=== PATIENT | male | born 1955 | race Caucasian/White ===

== ENCOUNTER 2024-06-03 18:15 | Inpatient (IN) | payer OTHER, SELFPAY ==
--- NOTE | ~2024-06-03 | US_ITS ---
CLINICAL HISTORY: pain and swelling Venous duplex ultrasound left lower extremity Comparison: None Findings: The visualized deep veins are fully compressible with normal Doppler color flow and spectral tracings. No popliteal cyst. IMPRESSION: 1. Negative for left lower extremity deep vein thrombosis. This document has been electronically signed by: Barry Eric MD on 06/03/2024 19:56:12
[2024-06-03 18:35] VITALS: BP 110/67; BP 156/95; PULSE 106; RESP 20; TEMP 36.6; O2SAT 95; O2SAT 96; BMI 66.6
--- NOTE | 2024-06-03 18:46 | ED_ITS ---
HPI - General Adult General Chief complaint: General Medical Stated complaint: cellulitis on left leg Time Seen by Provider: 06/03/24 18:22 Source: patient, RN notes reviewed and old records reviewed Mode of arrival: EMS Limitations: no limitations History of Present Illness ED Provider: Gino HERBERT narrative: 69-year-old male with past medical history significant for morbid obesity, chronic respiratory failure with hypoxia on nocturnal oxygen dependence, hyperlipidemia, diabetes, sleep apnea, depression, chronic kidney disease, congestive heart failure, atrial fibrillation on Eliquis presents for evaluation of left leg swelling and redness. Patient arrives via EMS from [facility] and rehab He was discharged there after being treated for left leg cellulitis at [facility]. Patient reports his symptoms did improve but returned last week. He was started on Keflex yesterday but was sent to the ER today due to worsening symptoms He reports pain from his left leg all way up to his left hip He is unsure if he has had any fevers or chills but has not had any documented fevers No other complaints or concerns at this time Related Data Allergies Allergy/AdvReac Type Severity Reaction Status Date / Time No Known Allergies Allergy Verified 06/03/24 18:38 Review of Systems 2 Constitutional: Constitutional: Denies body ache(s), Denies chills, Denies fever(s) and Denies headache(s) Eyes: Eyes: Denies blurry vision ENT: Denies vertigo and Denies headache(s) Cardiovascular: Cardiovascular: Denies dyspnea Respiratory: Respiratory: Denies cough and Denies dyspnea Gastrointestinal: Gastrointestinal: Denies abdominal pain, Denies nausea and Denies vomiting Musculoskeletal: Musculoskeletal: Reports radiating pain into limb Integumentary/Breasts: Skin/Breast: Reports erythema and Denies wounds Neurologic: Denies vertigo and Denies headache(s) Psychiatric: Psychiatric: Denies anxiety PMFSH Social History Social History Advance Directives: Yes Advance Directives Information Provided: No Advance Directives on File: No Do you have a plan to hurt others: No Plan Physical Exam ED Vital Signs: Vital Signs - 24 hr 06/03/24 18:35 Temperature 97.9 F Pulse Rate 106 H Respiratory Rate 20 Blood Pressure 110/67 Pulse Oximetry 95 Oxygen Delivery Method Room Air BMI result Body Mass Index 66.6 Const General: healthy appearing, comfortable, no acute distress, alert and awake Nutritional Appearance: well nourished Orientation/consciousness: patient oriented x3 HENMT Head: Yes normocephalic and Yes atraumatic Eyes Eyelids: Yes eyelids normal Conjunctivae: conjunctivae normal Sclerae: sclerae normal Corneas: corneas normal Pupils: Equal, round and reactive pupils present EOM: EOMs intact bilaterally Neck Neck: Yes full ROM Resp Effort & Inspection: normal respiratory effort, able to speak in complete sentences and not labored GI Inspection: No distended Palpation (GI): Soft to palpation, not firm, nontender, no guarding and not rigid Skin General skin exam: elasticity normal Neuro General: patient oriented x3 Cranial nerves: Yes Equal, round and reactive pupils present and Yes Bilaterally intact EOM present Cognition (Neuro): normal cognition Extrem Other: Patient has erythema extending from the left lower extremity all the way up towards the left hip. This area has increased swollen. There are no deep wounds or excoriations. Medical Decision Making Medical Decision Making MDM Narrative: 69-year-old male past medical history as documented above presents for evaluation of left leg pain and swelling. He was recently treated for left leg cellulitis and is concerned that this is recurring. Plan for labs including blood cultures, he is anticoagulated so less likely DVT we will get an ultrasound of the left lower extremity. The patient is tachycardic to 106 beats minute but is afebrile and normotensive. Differential Diagnosis Differential Diagnoses: The differential diagnosis associated with the presentation includes Cellulitis Abscess DVT Dermatitis Lymphadenopathy Admission/Observation Consideration of admission/observation: Escalation of care including admission/observation considered Lab Data MDM Lab Attestation statement: I reviewed the patient's lab results. No leukocytosis. The patient does have a mild anemia which is likely anemia of chronic disease. He has a thrombocytopenia of 141 K. No significant electrolyte abnormalities. Patient's BUN is elevated 28 with a normal creatinine of 0.84. 06/03/24 18:58 06/03/24 19:31 Labs: Lab Results 06/03/24 06/03/24 Range/Units 18:58 19:31 WBC 8.1 (4.8-10.8) X10*3/uL RBC 4.57 L (4.60-5.80) X10*6/uL Hgb 13.0 L (14.0-18.0) g/dl Hct 39.5 L (42.0-52.0) % MCV 86.4 (80.0-98.0) fL MCH 28.4 (27.0-33.0) pg MCHC 32.9 (31.0-36.0) g/dl RDW 14.7 (11.0-16.0) % Plt Count 141 L (160-400) X10*3/uL MPV 10.2 (9.4-12.4) fL Immature Gran % (Auto) 0.7 H (0.0-0.4) % Neut % (Auto) 84.6 H (45-73) % Lymph % (Auto) 8.9 L (20-40) % [place] % (Auto) 4.7 (2-11) % Eos % (Auto) 1.0 (0-4) % Baso % (Auto) 0.1 (0-2) % Lymph # (Auto) 0.7 L (1.2-4.9) X10*3/uL [place] # (Auto) 0.4 (0.1-1.2) X10*3/uL Eos # (Auto) 0.1 (0.0-0.4) X10*3/uL Baso # (Auto) 0.0 (0.0-0.2) X10*3/uL Abs Immat Gran (auto) 0.06 H (0.00-0.03) X10*3/uL Absolute Neuts (auto) 6.9 (2.0-8.3) x10*3/uL Absolute Nucleated RBC 0.000 (0.0-0.012) X10*3/uL Nucleated RBC % (auto) 0.0 (0.0-0.2) /100WBC PT 15.9 H (10.9-12.4) SEC INR 1.4 H (0.9-1.1) APTT 34.0 (26.0-36.8) SEC Sodium 140 (135-145) mmol/L Potassium 4.0 (3.3-5.1) mmol/L Chloride 103 (96-108) mmol/L Carbon Dioxide 31 H (22-29) mmol/L Anion Gap 10 L (12-20) BUN 28 H (9-16) mg/dL Creatinine 0.84 (0.5-1.4) mg/dL Estim Creat Clear Calc 137.0 Estimated GFR > 60 Random Glucose 105 (60-115) mg/dL Lactic Acid 1.1 (0.5-2.0) mmol/L Calcium 8.3 L (8.4-10.2) mg/dL Total Bilirubin 0.3 (0.0-1.0) mg/dL AST 50 H (5-37) U/L ALT 64 H (0-40) U/L Alkaline Phosphatase 61 (39-117) U/L Total Protein 6.2 L (6.5-8.0) g/dL Albumin 2.8 L (3.5-5.0) g/dL Lipase 13 (8-78) U/L Radiology Impression Discussion of test interpretation with radiology: I have reviewed the radiologist's reading. (Left lower extremity ultrasound negative for DVT) Discharge Plan Discharge Clinical Impression: Cellulitis of left leg Patient Disposition: Still a Patient Print Language: Yi
[2024-06-03 19:03] LABS: MANUAL DIFF FLAG NO
[2024-06-03 19:05] LABS: Basophils Percent Auto 0.1 % (0-2); Eosinophils Absolute Auto 0.1 X10*3/uL (0.0-0.4); Hematocrit 39.5 % (42.0-52.0); Imm Gran Abs Auto 0.06 X10*3/uL (0.00-0.03); Imm Gran Pct Auto 0.7 % (0.0-0.4); Lymphocytes Absolute Auto 0.7 X10*3/uL (1.2-4.9); Lymphocytes Percent Auto 8.9 % (20-40); Mean Corpuscular HGB Conc 32.9 g/dl (31.0-36.0); Mean Corpuscular Hemoglobin 28.4 pg (27.0-33.0); Mean Corpuscular Volume 86.4 fL (80.0-98.0); Mean Platelet Volume 10.2 fL (9.4-12.4); Monocytes Absolute Auto 0.4 X10*3/uL (0.1-1.2); Monocytes Percent Auto 4.7 % (2-11); Neutrophils Absolute Auto 6.9 x10*3/uL (2.0-8.3); Neutrophils Percent Auto 84.6 % (45-73); Platelet Count 141 X10*3/uL (160-400); Red Blood Count 4.57 X10*6/uL (4.60-5.80); Red Cell Distribution Width 14.7 % (11.0-16.0); White Blood Count 8.1 X10*3/uL (4.8-10.8)
[2024-06-03 19:20] LABS: Lactic Acid 1.1 mmol/L (0.5-2.0)
[2024-06-03 19:49] LABS: Alanine Aminotransferase 64 U/L (0-40); Albumin Level 2.8 g/dL (3.5-5.0); Alkaline Phosphatase 61 U/L (39-117); Anion Gap 10 (12-20); Aspartate Amino Transferase 50 U/L (5-37); Bilirubin Total 0.3 mg/dL (0.0-1.0); Blood Urea Nitrogen 28 mg/dL (9-16); Calcium 8.3 mg/dL (8.4-10.2); Carbon Dioxide 31 mmol/L (22-29); Chloride 103 mmol/L (96-108); Estimated Glomerular Filt Rate > 60; Glucose Random 105 mg/dL (60-115); Lipase 13 U/L (8-78); Sodium 140 mmol/L (135-145); Total Protein 6.2 g/dL (6.5-8.0)
[2024-06-03 19:50] LABS: INTERNATIONAL NORM RATIO 1.4 (0.9-1.1); Prothrombin Time 15.9 SEC (10.9-12.4)
[2024-06-03 20:00] VITALS: BP 107/76; PULSE 90; RESP 18; O2SAT 99
[2024-06-03] MEDS: cefTRIAXone sodium 2 GM VIAL IVPUSH (20:22)
[2024-06-03] MEDS: vancomycin/NS 2,000 MG/500 ML PLAST..BAG 250 MG IV (20:26)
--- NOTE | 2024-06-03 20:45 | PM.IMHP ---
History of Present Illness Date of Service: 06/03/24 Attending physician on admission: Davida Ugarte Chief Complaint: LLE cellulitis Patient is a annual male with a past medical history significant for morbid obesity, AFib on Eliquis, obesity hypoventilation syndrome, Charcot's foot left lower extremity secondary to CKD, TRACY on CPAP, ?T2DM, with recent admission at [facility] for left lower extremity cellulitis, discharged to [place] [facility] 1 week ago. The patient reports that his cellulitis improved when he was discharged and he went to rehab on p.o. antibiotics with complete resolution of the cellulitis. He returns today with worsening cellulitis for the past 2 days. Previously it was from the knee down now it is all the way up to the hip. Very erythematous without any purulent drainage, or warmth. Does report some fever and chills starting 2 days ago as well as an intermittent headache. Denies nausea, vomiting, abdominal pain, diarrhea, urinary symptoms including frequency, urgency or hematuria. He is bed-bound and does have urinary incontinence. He reports multiple skin rashes that he is being treated for with creams and powders. Review of Systems Constitutional: Constitutional: Denies body ache(s), Reports chills, Denies fatigue, Reports fever(s) and Reports headache(s) Eyes: Eyes: Denies change in vision ENT: Reports headache(s), Denies nasal congestion, Denies nasal discharge and Denies sore throat Cardiovascular: Cardiovascular: Denies chest pain, Denies rapid heart rate, Denies lightheadedness and Denies dyspnea Respiratory: Respiratory: Denies chest congestion, Denies cough, Denies dyspnea and Denies wheezing Gastrointestinal: Gastrointestinal: Denies diarrhea, Denies nausea and Denies vomiting Genitourinary: Genitourinary: Denies hematuria, Denies dysuria, Denies urinary frequency and Reports urinary incontinence (Chronic) Musculoskeletal: Musculoskeletal: Denies myalgias Integumentary/Breasts: Skin/Breast: Reports as per HPI Neurologic: Denies confusion and Reports headache(s) Psychiatric: Psychiatric: Denies confusion Endocrine: Endocrine: Denies fatigue Hematologic/Lymphatic: Hematologic/Lymphatic: Denies easy bleeding and Denies easy bruising Allergic/Immunologic: Allergic/Immunologic: Denies wheezing [facility] Medical History (Updated 06/03/24 @ 20:55 by Arabella Cota PA-C) TRACY on CPAP T2DM (type 2 diabetes mellitus) CKD (chronic kidney disease) Charcot joint of foot Obesity hypoventilation syndrome A-fib Morbid obesity with BMI of 60.0-69.9, adult Functional capacity: bed bound Social History Advance Directives: Yes Advance Directives Information Provided: No Advance Directives on File: No Do you have a plan to hurt others: No Plan Narrative: No smoking, alcohol or drug use Meds Allergies Allergy/AdvReac Type Severity Reaction Status Date / Time No Known Allergies Allergy Verified 06/03/24 18:38 Active Medications: Current Medications Vancomycin HCl (Vancomycin/Ns) 2,000 mg in 500 mls @ 250 mls/hr IV ONCE ONE Stop: 06/03/24 22:11 Last Admin: 06/03/24 20:26 Dose: 250 mls/hr Physical Exam Vital Signs and Narrative: Vital Signs: Last Vital Signs Temp 97.9 F 06/03/24 18:35 Pulse 90 06/03/24 20:00 Resp 18 06/03/24 20:00 BP 107/76 06/03/24 20:00 Pulse Ox 99 06/03/24 20:00 O2 Del Method Room Air 06/03/24 20:00 BMI result Body Mass Index 66.6 General: AOx3, no acute distress Resp: CTA bilaterally, difficult to auscultate due to body habitus CVS: S1, S2, RRR, difficult to auscultate due to body habitus GI: +BS, NT, no distention Skin: Warm, dry Neuro: Cranial nerves II-XII grossly intact bilaterally. Motor grossly intact bilaterally Extremities: Bilateral edema lower extremities. Venous stasis bilaterally. Extensive erythema left lower extremity from foot to hip. No sign of abscess or active drainage although difficult to assess due to body habitus. No significant warmth. Mild fluid drainage on right ankle, source unable to be identified. Intertriginous rash under pannus. Psych: Appropriate affect Const: General: No confusion Orientation/consciousness: No confusion Neuro: General: No confusion Results Labs 06/03/24 18:58 06/03/24 19:31 Labs: Laboratory Results - last 24 hr 06/03/24 06/03/24 18:58 19:31 MCV 86.4 MCH 28.4 MCHC 32.9 RDW 14.7 Plt Count 141 L MPV 10.2 Immature Gran % (Auto) 0.7 H Neut % (Auto) 84.6 H Lymph % (Auto) 8.9 L [place] % (Auto) 4.7 Eos % (Auto) 1.0 Baso % (Auto) 0.1 Lymph # (Auto) 0.7 L [place] # (Auto) 0.4 Eos # (Auto) 0.1 Baso # (Auto) 0.0 Abs Immat Gran (auto) 0.06 H Absolute Neuts (auto) 6.9 Absolute Nucleated RBC 0.000 Nucleated RBC % (auto) 0.0 PT 15.9 H INR 1.4 H APTT 34.0 Anion Gap 10 L Estim Creat Clear Calc 137.0 Estimated GFR > 60 Random Glucose 105 Lactic Acid 1.1 Calcium 8.3 L Total Bilirubin 0.3 AST 50 H ALT 64 H Alkaline Phosphatase 61 Total Protein 6.2 L Albumin 2.8 L Lipase 13 Assessment and Plan (1) Cellulitis of left leg: Status: Acute (2) Intertrigo: Status: Acute (3) Morbid obesity with BMI of 60.0-69.9, adult: Status: Acute Plan Patient is a annual male with a past medical history significant for morbid obesity, AFib on Eliquis, obesity hypoventilation syndrome, Charcot's foot left lower extremity secondary to CKD, TRACY on CPAP, ?T2DM, with recent admission at [facility] for left lower extremity cellulitis, discharged to [place] [facility] 1 week ago. Pt reports his BP was very low at [facility], likely septic, however, no sepsis at this time. Failed outpt treatment with keflex x2 rounds. cellulitis LLE, failed outpt treatment - WBC 8.1, vitals stable, lactic normal, blood cultures x2 pending, no sepsis - US LLE negative for DVT - started on vancomycin and ceftriaxone in ED, continue vanco and switch from ceftriaxone to zosyn - monitor CBC and BMP intertrigo - clotrimazole cream BID under pannus and in skin folds a fib - continue eliquis and rate control meds Obesity hypoventilation syndrome/TRACY - CPAP at night ?T2DM -- pt reports no formal dx but med list has sliding scale - check A1c - diabetic diet - SSI Morbid obesity - BMI 66.6 - weight loss encouraged med rec not complete upon admission Full code VTE prophylaxis: eliquis Patient with left lower extremity cellulitis with failed outpatient treatment and recent admission for sepsis at [facility], requiring admission for at least 2 midnights stay for IV antibiotics and monitoring. Quality Stroke Does the patient have a stroke diagnosis?: No VTE Prior VTE?: No VTE Risk Level:: Medical - moderate - high VTE Device Contraindication: Treatment Not Indicated VTE Drug Contraindication: N/A - Med Ordered
--- NOTE | 2024-06-03 22:29 | PC.NURSE ---
late admin for zosyn iv d/t vanco still running
[2024-06-03] MEDS: Apixaban 5 MG TABLET PO (22:34)
[2024-06-03] MEDS: Piperacillin Sodium/Tazobactam 3.375 GM in 0.9 % Sodium Chloride 50 ML IV (22:34)
--- NOTE | 2024-06-03 23:29 | PC.NURSE ---
pt moved into hospital bed, resting comfortably in no apparent distress, offers no current complaints. call walsh within reach , plan of care ongoing
[2024-06-04] VITALS (9 sets, daily range): BP systolic 101–147; BP diastolic 61–76; PULSE 85–107; RESP 16–20; TEMP 36.1–36.7; O2SAT 94–97
[2024-06-04] MEDS: Piperacillin Sodium/Tazobactam 3.375 GM in 0.9 % Sodium Chloride 50 ML IV ×4 (04:01→21:41)
[2024-06-04 05:15] LABS: Estimated Average Glucose 105 mg/dL; Hemoglobin A1C 113.7682 umol/L; Hemoglobin A1c % 5.3 % (<6.0); Total Hemoglobin (HGBA1C) 3281.5384 umol/L
[2024-06-04 06:38] LABS: MANUAL DIFF FLAG NO
[2024-06-04 06:57] LABS: Basophils Percent Auto 0.3 % (0-2); Eosinophils Absolute Auto 0.1 X10*3/uL (0.0-0.4); Eosinophils Percent Auto 1.6 % (0-4); Hemoglobin 12.7 g/dl (14.0-18.0); Imm Gran Abs Auto 0.05 X10*3/uL (0.00-0.03); Imm Gran Pct Auto 0.7 % (0.0-0.4); Lymphocytes Absolute Auto 0.9 X10*3/uL (1.2-4.9); Lymphocytes Percent Auto 12.3 % (20-40); Mean Corpuscular HGB Conc 31.8 g/dl (31.0-36.0); Mean Corpuscular Hemoglobin 27.9 pg (27.0-33.0); Mean Corpuscular Volume 87.7 fL (80.0-98.0); Mean Platelet Volume 9.9 fL (9.4-12.4); Monocytes Absolute Auto 0.4 X10*3/uL (0.1-1.2); Monocytes Percent Auto 5.1 % (2-11); Neutrophils Absolute Auto 5.5 x10*3/uL (2.0-8.3); Platelet Count 124 X10*3/uL (160-400); Red Blood Count 4.56 X10*6/uL (4.60-5.80); Red Cell Distribution Width 14.6 % (11.0-16.0); White Blood Count 6.9 X10*3/uL (4.8-10.8)
[2024-06-04 07:17] LABS: Anion Gap 12 (12-20); Blood Urea Nitrogen 26 mg/dL (9-16); Calcium 8.3 mg/dL (8.4-10.2); Carbon Dioxide 27 mmol/L (22-29); Chloride 106 mmol/L (96-108); Creatinine Clr Calc Pharmacy 162.1; Estimated Glomerular Filt Rate > 60; Glucose Random 86 mg/dL (60-115); Potassium 3.7 mmol/L (3.3-5.1); Sodium 141 mmol/L (135-145)
[2024-06-04 07:48] LABS: Glucose, Whole Blood 76 mg/dL (60-115)
--- NOTE | 2024-06-04 08:28 | PHA.MEDREC ---
Pharmacy Consult ? Medication Reconciliation Pharmacy has completed the medication reconciliation, utilized transfer/discharge report/list from [facility].
--- NOTE | 2024-06-04 08:42 | PHA.PROG ---
Admission Date/Time: June 03, 2024 21:07 Indication: SKIN Weight in k.777 kg Adjusted body weight in Kg: [place] body weight in Kg: Obesity Dosing Indication % IBW: Serum Creatinine - Last 168 Hours 06/03/24 06/04/24 19:31 05:19 Creatinine 0.84 0.71 Estimated CrCl and GFR - Last 168 Hours 06/03/24 06/04/24 19:31 05:19 Estim Creat Clear Calc 137.0 162.1 Estimated GFR > 60 > 60 Vancomycin Loading Dose: 2000 MG Current Vancomycin Dosing Regimen: 1500 MG Q12H Vancomycin Monitoring using AUC goal of 400 - 600 range with trough as surrogate marker: PEE=576 TROUGH=14.7 Date and Time for next Vancomycin Level to be drawn: 06/05/24 @0700 Pharmacist Comments on Vancomycin Plan: Vancomycin dosing will take advantage of [employer] as a clinical decision support tool that uses Bayesian modeling to calculate individual patient's pharmacokinetic parameters and forecast the patient's drug concentration time course with the target goal AUC 24 range of 400 - 600 mg/L/hr.
[2024-06-04] MEDS: Albuterol/Iprat 2.5/0.5MG 3 ML AMPUL.NEB INHALE ×2 (08:49→21:07)
[2024-06-04] MEDS: 0.9 % Sodium Chloride Flush 3 ML SYRINGE IVFLUSH ×2 (09:23→20:23)
[2024-06-04] MEDS: Atorvastatin Calcium 20 MG TABLET PO (09:24)
[2024-06-04] MEDS: Ferrous Sulfate 324 MG TABLET.DR PO (09:24)
[2024-06-04] MEDS: Cholecalciferol (Vitamin D3) 25 MCG TABLET 125 MCG PO (09:24)
[2024-06-04] MEDS: Calcium Carbonate 750 MG TAB.CHEW PO (09:24)
[2024-06-04] MEDS: Magnesium Oxide 400 MG TABLET PO (09:25)
[2024-06-04] MEDS: Dicyclomine HCl 10 MG CAPSULE PO ×2 (09:25→20:23)
[2024-06-04] MEDS: Escitalopram Oxalate 20 MG TABLET PO (09:25)
[2024-06-04] MEDS: Gabapentin 100 MG CAPSULE PO ×2 (09:25→20:23)
[2024-06-04] MEDS: Furosemide 40 MG TABLET PO (09:38)
[2024-06-04] MEDS: Metoprolol Succinate ER 50 MG TAB.ER.24H PO (09:38)
[2024-06-04] MEDS: traMADoL HCL 50 MG TABLET PO ×2 (09:40→21:40)
[2024-06-04 11:11] LABS: Glucose, Whole Blood 88 mg/dL (60-115)
[2024-06-04] MEDS: Apixaban 5 MG TABLET PO ×2 (11:37→20:23)
--- NOTE | 2024-06-04 12:00 | MHC.CM.PN ---
Addendum entered by Shayy Jeffers 06/05/24 10:28: ACCORDING TO [facility], [facility] DOES NOT HOLD BEDS. 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
[2024-06-04 16:15] LABS: Glucose, Whole Blood 103 mg/dL (60-115)
--- NOTE | 2024-06-04 16:22 | P.PNIM_ITS ---
Subjective Subjective Date of Service: 06/04/24 Interval History: no fever afebrile LLE redness had rash on back biopsied by invoice checker last week but doesn't remember name Review of Systems Review of Systems: Yes all other systems are reviewed and are negative Physical Exam 2 Vital Signs: Vital Signs: Last Vital Signs Temp 97.1 F 06/04/24 15:10 Pulse 86 06/04/24 15:10 Resp 20 06/04/24 15:10 BP 101/64 06/04/24 15:10 Pulse Ox 95 06/04/24 15:10 O2 Del Method Room Air 06/04/24 15:10 BMI result Body Mass Index 66.6 Gen: in no acute distress HEENT: sclera anicteric, moist mucus membranes Neck: supple Lungs: clear to auscultation bilaterally Heart: regular rate and rhythm, no murmurs Abd: soft, non-tender, non-distended, obese Ext: 2+ bilateral leg edema with venous stasis changes Skin: bright-red erythema LLE from hip to foot without any abscess or drainage, scaly/erythematous maculopapular rash on back Neuro: alert and oriented x3, no focal findings Psych: appropriate affect Objective Data Active Medications Acetaminophen (Acetaminophen 325 Mg Tablet) 975 mg PO Q6H PRN PRN Reason: Pain, Mild 1-3,fever,headache Albuterol/Ipratropium (Albuterol/Iprat 2.5/0.5mg 3 Ml Ampul.Neb) 3 ml INHALE BID [facility] Last Admin: 06/04/24 08:49 Dose: 3 ml Documented By: ADAMS Apixaban (Apixaban 5 Mg Tablet) 5 mg PO BID [facility] Last Admin: 06/04/24 11:37 Dose: 5 mg Documented By: DEVAN Atorvastatin Calcium (Atorvastatin Calcium 20 Mg Tablet) 20 mg PO DAILY [facility] Last Admin: 06/04/24 09:24 Dose: 20 mg Documented By: BARRETT Bisacodyl (Bisacodyl 10 Mg Supp.Rect) 10 mg [place] DAILY PRN PRN Reason: constipation if no BM for 8 hours after MOM Calcium Carbonate (Calcium Carbonate 750 Mg Tab.Chew) 750 mg PO Q4H PRN PRN Reason: Heartburn Calcium Carbonate (Calcium Carbonate 750 Mg Tab.Chew) 750 mg PO DAILY [facility] Last Admin: 06/04/24 09:24 Dose: 750 mg Documented By: BARRETT Clotrimazole (Clotrimazole 1 % Cream 15 Gm Tube) 1 appl TOPICAL BID [facility]; Protocol Last Admin: 06/04/24 14:53 Dose: Not Given Documented By: DEVAN Non-Admin Reason: Med Not Available Dicyclomine HCl (Dicyclomine Hcl 10 Mg Capsule) 10 mg PO BID [facility] Last Admin: 06/04/24 09:25 Dose: 10 mg Documented By: BARRETT Escitalopram Oxalate (Escitalopram Oxalate 20 Mg Tablet) 20 mg PO DAILY [facility] Last Admin: 06/04/24 09:25 Dose: 20 mg Documented By: BARRETT Ferrous Sulfate (Ferrous Sulfate 324 Mg Tablet.Dr) 324 mg PO DAILY [facility] Last Admin: 06/04/24 09:24 Dose: 324 mg Documented By: BARRETT Fluticasone Propionate (Fluticasone Propionate Nasal 16 Gm [place]) 1 spray NOSTRIL-B DAILY [facility] Last Admin: 06/04/24 14:53 Dose: Not Given Documented By: DEVAN Non-Admin Reason: Med Not Available Fluticasone/Vilanterol (Fluticasone/Vilanterol 200/25 Blst.W.Dev) 1 puff INHALE RDAILY [facility] Last Admin: 06/04/24 14:54 Dose: Not Given Documented By: DEVAN Non-Admin Reason: Med Not Available Furosemide (Furosemide 40 Mg Tablet) 40 mg PO Q48H [facility]; Protocol Last Admin: 06/04/24 09:38 Dose: 40 mg Documented By: BARRETT Gabapentin (Gabapentin 100 Mg Capsule) 100 mg PO BID [facility] Last Admin: 06/04/24 09:25 Dose: 100 mg Documented By: BARRETT Glucose (Glucose Gel 15 Gm Gel..Gram.) 15 gm PO Q15M PRN; Protocol PRN Reason: per Hypoglycemia Standing Ord. Dextrose (D10) 250 mls @ 750 mls/hr IV Q15M PRN; Protocol PRN Reason: per Hypoglycemia Standing Ord. Piperacillin Sod/Tazobactam (Sod 3.375 gm/ Sodium Chloride) 50 mls @ 100 mls/hr IV Q6H [facility] Last Admin: 06/04/24 16:16 Dose: Not Given Documented By: DEVAN Non-Admin Reason: No Insulin Coverage Daptomycin 700 mg/ Sodium (Chloride) 64 mls @ 100 mls/hr IV DAILY [facility] Insulin Human Lispro (Insulin Lispro 100 Unit/Ml 3 Ml Vial) 0 unit SUBCUT QIDACHS [facility]; Protocol Last Admin: 06/04/24 11:22 Dose: Not Given Documented By: CHE Non-Admin Reason: No Insulin Coverage Lorazepam (Lorazepam 0.5 Mg Tablet) 0.5 mg PO Q12H PRN PRN Reason: Anxiety Magnesium Hydroxide (Milk Of Magnesia 30 Ml Oral.Susp) 30 ml PO DAILY PRN PRN Reason: Constipation Magnesium Oxide (Magnesium Oxide 400 Mg Tablet) 400 mg PO DAILY [facility] Last Admin: 06/04/24 09:25 Dose: 400 mg Documented By: BARRETT Melatonin (Melatonin 3 Mg Tablet) 9 mg PO BEDTIME [facility] Metoprolol Succinate (Metoprolol Succinate Er 50 Mg Tab.Er.24h) 50 mg PO DAILY [facility]; Protocol Last Admin: 06/04/24 09:38 Dose: 50 mg Documented By: BARRETT Nitroglycerin (Nitroglycerin 0.4 Mg Tab.Subl) 0.4 mg SUBLINGUAL Q5M PRN PRN Reason: Chest Pain Non-Formulary Medication (Dorzolamide-Timolol (Pf) [Cosopt (Pf)]) 1 drop EYE- BOTH DAILY [facility] Omeprazole (Omeprazole 20 Mg Capsule.Dr) 20 mg PO DAILY@0630 [facility] Ondansetron HCl (Ondansetron Hcl 4 Mg/2 Ml Vial) 4 mg IVPUSH Q8H PRN PRN Reason: Nausea and Vomiting Sodium Chloride (0.9 % Sodium Chloride Flush 3 Ml Syringe) 3 ml IVFLUSH QSHIFT [facility] Last Admin: 06/04/24 09:23 Dose: 3 ml Documented By: BARRETT Sodium Chloride (Sodium Chloride 0.65 % Nasal 44 Ml Sprbtl) 2 spray NOSTRIL-B Q6H PRN PRN Reason: Nasal Congestion Tamsulosin HCl (Tamsulosin Hcl 0.4 Mg Capsule) 0.8 mg PO BEDTIME [facility] Tramadol HCl (Tramadol Hcl 50 Mg Tablet) 50 mg PO Q12H PRN PRN Reason: pain related to left lower cellulitis Last Admin: 06/04/24 09:40 Dose: 50 mg Documented By: BARRETT Vitamin D (Cholecalciferol (Vitamin D3) 25 Mcg Tablet) 125 mcg PO DAILY [facility] Last Admin: 06/04/24 09:24 Dose: 125 mcg Documented By: BARRETT Labs 06/04/24 05:19 06/04/24 05:19 Labs: Laboratory Results - last 24 hr 06/03/24 06/03/24 06/04/24 18:58 19:31 05:19 MCV 86.4 87.7 MCH 28.4 27.9 MCHC 32.9 31.8 RDW 14.7 14.6 Plt Count 141 L 124 L MPV 10.2 9.9 Immature Gran % (Auto) 0.7 H 0.7 H Neut % (Auto) 84.6 H 80.0 H Lymph % (Auto) 8.9 L 12.3 L [place] % (Auto) 4.7 5.1 Eos % (Auto) 1.0 1.6 Baso % (Auto) 0.1 0.3 Lymph # (Auto) 0.7 L 0.9 L [place] # (Auto) 0.4 0.4 Eos # (Auto) 0.1 0.1 Baso # (Auto) 0.0 0.0 Abs Immat Gran (auto) 0.06 H 0.05 H Absolute Neuts (auto) 6.9 5.5 Absolute Nucleated RBC 0.000 0.000 Nucleated RBC % (auto) 0.0 0.0 PT 15.9 H INR 1.4 H APTT 34.0 Anion Gap 10 L 12 Estim Creat Clear Calc 137.0 162.1 Estimated GFR > 60 > 60 POC Glucose Random Glucose 105 86 Estimat Average Glucose 105 Hemoglobin A1c % 5.3 Lactic Acid 1.1 Calcium 8.3 L 8.3 L Total Bilirubin 0.3 AST 50 H ALT 64 H Alkaline Phosphatase 61 Total Creatine Kinase 12 L Total Protein 6.2 L Albumin 2.8 L Lipase 13 06/04/24 06/04/24 06/04/24 07:36 11:03 16:07 MCV MCH MCHC RDW Plt Count MPV Immature Gran % (Auto) Neut % (Auto) Lymph % (Auto) [place] % (Auto) Eos % (Auto) Baso % (Auto) Lymph # (Auto) [place] # (Auto) Eos # (Auto) Baso # (Auto) Abs Immat Gran (auto) Absolute Neuts (auto) Absolute Nucleated RBC Nucleated RBC % (auto) PT INR APTT Anion Gap Estim Creat Clear Calc Estimated GFR POC Glucose 76 88 103 Random Glucose Estimat Average Glucose Hemoglobin A1c % Lactic Acid Calcium Total Bilirubin AST ALT Alkaline Phosphatase Total Creatine Kinase Total Protein Albumin Lipase Assessment and Plan (1) Cellulitis of left leg: Status: Acute Plan d2 for 69yo M with morbid obesity, AF on apixaban, OHS, Charcot foot LLE, TRACY on CPAP, solitary kidney, ?DM2 with recent admission to [facility] for LLE cellulitis after which he was discharged to [facility]; sent in with recurrent cellulitis that did respond to 2 rounds of cephalexin LLE cellulitis - US negative for DVT, 06/03- pip-dalila, 06/04- change vancomycin to daptomycin [dosed for adjusted body weight], obtain records from [facility] [he is on prednisone but unclear indication- 30 mg/d for now] intertrigo - clotrimazole rash - try to obtain biopsy records intertrigo - clotrimazole cream BID under pannus and in skin folds pAF - continue apixaban, metoprolol succinate HLD - hold statin while on daptomycin venous stasis - furosemide OHS TRACY - CPAP at night mood disorder - escitalopram ?DM2 - A1c only 5.3, will d/c insulin + fingersticks VTE ppx - apixaban dispo - TBD In my clinical judgment, the patient requires continued inpatient hospitalization for the following reasons: IV ABX Total time managing care of this patient today: 40 minutes. Quality Stroke Does the patient have a stroke diagnosis?: No VTE Prior VTE?: No VTE Risk Level:: Medical - moderate - high VTE Device Contraindication: Treatment Not Indicated VTE Drug Contraindication: N/A - Med Ordered
[2024-06-04] MEDS: predniSONE 10 MG TABLET 30 MG PO (16:55)
[2024-06-04] MEDS: Acetaminophen 325 MG TABLET 975 MG PO (19:21)
[2024-06-04] MEDS: Melatonin 3 MG TABLET 9 MG PO (20:23)
[2024-06-04] MEDS: Tamsulosin HCL 0.4 MG CAPSULE 0.8 MG PO (20:23)
[2024-06-04] MEDS: Clotrimazole 1 % Cream 15 GM TUBE 1 APPL TOPICAL (21:41)
[2024-06-04] MEDS: Milk of Magnesia 30 ML ORAL.SUSP PO (21:51)
[2024-06-05] VITALS (10 sets, daily range): BP systolic 103–133; BP diastolic 60–78; PULSE 60–94; RESP 18–20; TEMP 36–36.7; O2SAT 93–97
[2024-06-05] MEDS: Piperacillin Sodium/Tazobactam 3.375 GM in 0.9 % Sodium Chloride 50 ML IV ×4 (03:42→22:20)
[2024-06-05] MEDS: Omeprazole 20 MG CAPSULE.DR PO (06:06)
[2024-06-05 06:45] LABS: MANUAL DIFF FLAG NO
[2024-06-05 06:50] LABS: Basophils Percent Auto 0.4 % (0-2); Hemoglobin 12.2 g/dl (14.0-18.0); Imm Gran Abs Auto 0.05 X10*3/uL (0.00-0.03); Lymphocytes Absolute Auto 0.4 X10*3/uL (1.2-4.9); Lymphocytes Percent Auto 8.1 % (20-40); Mean Corpuscular HGB Conc 32.1 g/dl (31.0-36.0); Mean Corpuscular Hemoglobin 27.9 pg (27.0-33.0); Mean Corpuscular Volume 86.8 fL (80.0-98.0); Mean Platelet Volume 9.8 fL (9.4-12.4); Monocytes Absolute Auto 0.2 X10*3/uL (0.1-1.2); Monocytes Percent Auto 3.7 % (2-11); Neutrophils Absolute Auto 4.4 x10*3/uL (2.0-8.3); Neutrophils Percent Auto 86.8 % (45-73); Platelet Count 152 X10*3/uL (160-400); Red Blood Count 4.38 X10*6/uL (4.60-5.80); Red Cell Distribution Width 14.5 % (11.0-16.0); White Blood Count 5.1 X10*3/uL (4.8-10.8)
[2024-06-05 07:03] LABS: Anion Gap 11 (12-20); Blood Urea Nitrogen 25 mg/dL (9-16); Calcium 8.5 mg/dL (8.4-10.2); Carbon Dioxide 28 mmol/L (22-29); Chloride 104 mmol/L (96-108); Creatinine Clr Calc Pharmacy 162.1; Estimated Glomerular Filt Rate > 60; Glucose Random 128 mg/dL (60-115); Sodium 139 mmol/L (135-145)
[2024-06-05 07:58] LABS: Glucose, Whole Blood 116 mg/dL (60-115)
[2024-06-05 08:26] LABS: Estimated Average Glucose 105 mg/dL; Hemoglobin A1C 109.4465 umol/L; Hemoglobin A1c % 5.3 % (<6.0); Total Hemoglobin (HGBA1C) 3160.9445 umol/L
[2024-06-05] MEDS: 0.9 % Sodium Chloride Flush 3 ML SYRINGE IVFLUSH ×3 (08:40→22:36)
[2024-06-05] MEDS: predniSONE 10 MG TABLET 30 MG PO (08:40)
[2024-06-05] MEDS: Calcium Carbonate 750 MG TAB.CHEW PO (08:40)
[2024-06-05] MEDS: Dicyclomine HCl 10 MG CAPSULE PO ×2 (08:40→22:24)
[2024-06-05] MEDS: Cholecalciferol (Vitamin D3) 25 MCG TABLET 125 MCG PO (08:40)
[2024-06-05] MEDS: Magnesium Oxide 400 MG TABLET PO (08:40)
[2024-06-05] MEDS: Metoprolol Succinate ER 50 MG TAB.ER.24H PO (08:40)
[2024-06-05] MEDS: Ferrous Sulfate 324 MG TABLET.DR PO (08:40)
[2024-06-05] MEDS: Gabapentin 100 MG CAPSULE PO ×2 (08:40→22:24)
[2024-06-05] MEDS: Apixaban 5 MG TABLET PO ×2 (08:40→22:24)
[2024-06-05] MEDS: Escitalopram Oxalate 20 MG TABLET PO (08:40)
[2024-06-05] MEDS: DAPTOmycin 700 MG in 0.9 % Sodium Chloride 50 ML 100 MG IV (08:41)
[2024-06-05] MEDS: Clotrimazole 1 % Cream 15 GM TUBE 1 APPL TOPICAL ×2 (08:51→22:26)
[2024-06-05] MEDS: Fluticasone Propionate Nasal 16 GM SPRAY 1 SPRAY NOSTRIL-B (08:51)
[2024-06-05] MEDS: Albuterol/Iprat 2.5/0.5MG 3 ML AMPUL.NEB INHALE ×2 (09:17→19:44)
[2024-06-05] MEDS: Fluticasone/Vilanterol 200/25 BLST.W.DEV 1 PUFF INHALE (09:17)
[2024-06-05] MEDS: Furosemide 40 MG/4 ML VIAL IVPUSH (10:27)
--- NOTE | 2024-06-05 12:49 | P.PNIM_ITS ---
Subjective Subjective Date of Service: 06/05/24 Interval History: redness of L leg improving no fever Review of Systems Review of Systems: Yes all other systems are reviewed and are negative Physical Exam 2 Vital Signs: Vital Signs: Last Vital Signs Temp 97.7 F 06/05/24 12:00 Pulse 60 06/05/24 12:00 Resp 19 06/05/24 12:00 BP 123/73 06/05/24 12:00 Pulse Ox 97 06/05/24 12:00 O2 Del Method Room Air 06/05/24 12:00 BMI result Body Mass Index 66.6 Gen: in no acute distress HEENT: sclera anicteric, moist mucus membranes Neck: supple Lungs: clear to auscultation bilaterally Heart: regular rate and rhythm, no murmurs Abd: soft, non-tender, non-distended, obese Ext: 2+ bilateral leg edema with venous stasis changes Skin: bright-red erythema LLE from hip to foot without any abscess or drainage, scaly/erythematous maculopapular rash on back Neuro: alert and oriented x3, no focal findings Psych: appropriate affect Objective Data Active Medications Acetaminophen (Acetaminophen 325 Mg Tablet) 975 mg PO Q6H PRN PRN Reason: Pain, Mild 1-3,fever,headache Last Admin: 06/04/24 19:21 Dose: 975 mg Documented By: DANIEL Albuterol/Ipratropium (Albuterol/Iprat 2.5/0.5mg 3 Ml Ampul.Neb) 3 ml INHALE BID [facility] Last Admin: 06/05/24 09:17 Dose: 3 ml Documented By: ADAMS Apixaban (Apixaban 5 Mg Tablet) 5 mg PO BID [facility] Last Admin: 06/05/24 08:40 Dose: 5 mg Documented By: DEVAN Atorvastatin Calcium (Atorvastatin Calcium 20 Mg Tablet) 20 mg PO DAILY [facility] Last Admin: 06/04/24 09:24 Dose: 20 mg Documented By: BARRETT Bisacodyl (Bisacodyl 10 Mg Supp.Rect) 10 mg [place] DAILY PRN PRN Reason: constipation if no BM for 8 hours after MOM Calcium Carbonate (Calcium Carbonate 750 Mg Tab.Chew) 750 mg PO Q4H PRN PRN Reason: Heartburn Calcium Carbonate (Calcium Carbonate 750 Mg Tab.Chew) 750 mg PO DAILY [facility] Last Admin: 06/05/24 08:40 Dose: 750 mg Documented By: DEVAN Clotrimazole (Clotrimazole 1 % Cream 15 Gm Tube) 1 appl TOPICAL BID [facility]; Protocol Last Admin: 06/05/24 08:51 Dose: 1 appl Documented By: DEVAN Dicyclomine HCl (Dicyclomine Hcl 10 Mg Capsule) 10 mg PO BID [facility] Last Admin: 06/05/24 08:40 Dose: 10 mg Documented By: DEVAN Escitalopram Oxalate (Escitalopram Oxalate 20 Mg Tablet) 20 mg PO DAILY [facility] Last Admin: 06/05/24 08:40 Dose: 20 mg Documented By: DEVAN Ferrous Sulfate (Ferrous Sulfate 324 Mg Tablet.Dr) 324 mg PO DAILY [facility] Last Admin: 06/05/24 08:40 Dose: 324 mg Documented By: DEVAN Fluticasone Propionate (Fluticasone Propionate Nasal 16 Gm [place]) 1 spray NOSTRIL-B DAILY [facility] Last Admin: 06/05/24 08:51 Dose: 1 spray Documented By: DEVAN Fluticasone/Vilanterol (Fluticasone/Vilanterol 200/25 Blst.W.Dev) 1 puff INHALE RDAILY [facility] Last Admin: 06/05/24 09:17 Dose: 1 puff Documented By: ADAMS Furosemide (Furosemide 40 Mg/4 Ml Vial) 40 mg IVPUSH DAILY [facility]; Protocol Last Admin: 06/05/24 10:27 Dose: 40 mg Documented By: DEVAN Gabapentin (Gabapentin 100 Mg Capsule) 100 mg PO BID [facility] Last Admin: 06/05/24 08:40 Dose: 100 mg Documented By: DEVAN Piperacillin Sod/Tazobactam (Sod 3.375 gm/ Sodium Chloride) 50 mls @ 100 mls/hr IV Q6H [facility] Last Infusion: 06/05/24 11:20 Dose: Infused Documented By: DEVAN Daptomycin 700 mg/ Sodium (Chloride) 64 mls @ 100 mls/hr IV DAILY [facility] Last Infusion: 06/05/24 10:16 Dose: Infused Documented By: DEVAN Lorazepam (Lorazepam 0.5 Mg Tablet) 0.5 mg PO Q12H PRN PRN Reason: Anxiety Magnesium Hydroxide (Milk Of Magnesia 30 Ml Oral.Susp) 30 ml PO DAILY PRN PRN Reason: Constipation Last Admin: 06/04/24 21:51 Dose: 30 ml Documented By: DANIEL Magnesium Oxide (Magnesium Oxide 400 Mg Tablet) 400 mg PO DAILY [facility] Last Admin: 06/05/24 08:40 Dose: 400 mg Documented By: DEVAN Melatonin (Melatonin 3 Mg Tablet) 9 mg PO BEDTIME [facility] Last Admin: 06/04/24 20:23 Dose: 9 mg Documented By: DANIEL Metoprolol Succinate (Metoprolol Succinate Er 50 Mg Tab.Er.24h) 50 mg PO DAILY [facility]; Protocol Last Admin: 06/05/24 08:40 Dose: 50 mg Documented By: DEVAN Nitroglycerin (Nitroglycerin 0.4 Mg Tab.Subl) 0.4 mg SUBLINGUAL Q5M PRN PRN Reason: Chest Pain Omeprazole (Omeprazole 20 Mg Capsule.Dr) 20 mg PO DAILY@0630 [facility] Last Admin: 06/05/24 06:06 Dose: 20 mg Documented By: DANIEL Ondansetron HCl (Ondansetron Hcl 4 Mg/2 Ml Vial) 4 mg IVPUSH Q8H PRN PRN Reason: Nausea and Vomiting Prednisone (Prednisone 10 Mg Tablet) 30 mg PO DAILY [facility] Last Admin: 06/05/24 08:40 Dose: 30 mg Documented By: DEVAN Sodium Chloride (0.9 % Sodium Chloride Flush 3 Ml Syringe) 3 ml IVFLUSH QSHIFT [facility] Last Admin: 06/05/24 08:40 Dose: 3 ml Documented By: DEVAN Sodium Chloride (Sodium Chloride 0.65 % Nasal 44 Ml Sprbtl) 2 spray NOSTRIL-B Q6H PRN PRN Reason: Nasal Congestion Tamsulosin HCl (Tamsulosin Hcl 0.4 Mg Capsule) 0.8 mg PO BEDTIME [facility] Last Admin: 06/04/24 20:23 Dose: 0.8 mg Documented By: DANIEL Tramadol HCl (Tramadol Hcl 50 Mg Tablet) 50 mg PO Q12H PRN PRN Reason: pain related to left lower cellulitis Last Admin: 06/04/24 21:40 Dose: 50 mg Documented By: DANIEL Vitamin D (Cholecalciferol (Vitamin D3) 25 Mcg Tablet) 125 mcg PO DAILY [facility] Last Admin: 06/05/24 08:40 Dose: 125 mcg Documented By: DEVAN Labs 06/05/24 06:23 06/05/24 06:23 Labs: Laboratory Results - last 24 hr 06/04/24 06/05/24 06/05/24 16:07 06:23 07:42 MCV 86.8 MCH 27.9 MCHC 32.1 RDW 14.5 Plt Count 152 L MPV 9.8 Immature Gran % (Auto) 1.0 H Neut % (Auto) 86.8 H Lymph % (Auto) 8.1 L [place] % (Auto) 3.7 Eos % (Auto) 0.0 Baso % (Auto) 0.4 Lymph # (Auto) 0.4 L [place] # (Auto) 0.2 Eos # (Auto) 0.0 Baso # (Auto) 0.0 Abs Immat Gran (auto) 0.05 H Absolute Neuts (auto) 4.4 Absolute Nucleated RBC 0.000 Nucleated RBC % (auto) 0.0 Anion Gap 11 L Estim Creat Clear Calc 162.1 Estimated GFR > 60 POC Glucose 103 116 H Random Glucose 128 H Estimat Average Glucose 105 Hemoglobin A1c % 5.3 Calcium 8.5 Microbiology Microbiology Results: Microbiology 06/03/24 19:13 Blood Culture - Preliminary Blood - Venous No growth after 24 hours. 06/03/24 18:58 Blood Culture - Preliminary Blood - Venous No growth after 24 hours. Assessment and Plan (1) Cellulitis of left leg: Status: Acute Plan 32 for 69yo M with morbid obesity, AF on apixaban, OHS, Charcot foot LLE, TRACY on CPAP, solitary kidney, ?DM2 with recent admission to [facility] for LLE cellulitis after which he was discharged to [facility]; sent in with recurrent cellulitis that did respond to 2 rounds of cephalexin LLE cellulitis - US negative for DVT, 06/03- pip-dalila, 06/04- changed vancomycin to daptomycin [dosed for adjusted body weight], obtain records from [facility] adrenal insufficiency - discussed with doctor from [facility], Dr Ferrer- pt should remain on 30 mg/d of prednisone intertrigo - clotrimazole rash - Dr Ferrer to send biopsy records intertrigo - clotrimazole cream BID under pannus and in skin folds pAF - continue apixaban, metoprolol succinate HLD - hold statin while on daptomycin venous stasis - furosemide- will give IV for a few doses OHS TRACY - CPAP at night mood disorder - escitalopram ?DM2 - A1c only 5.3, will d/c insulin + fingersticks VTE ppx - apixaban dispo - eventual return to [facility] In my clinical judgment, the patient requires continued inpatient hospitalization for the following reasons: IV ABX Total time managing care of this patient today: 40 minutes. Quality Stroke Does the patient have a stroke diagnosis?: No VTE Prior VTE?: No VTE Risk Level:: Medical - moderate - high VTE Device Contraindication: Treatment Not Indicated VTE Drug Contraindication: N/A - Med Ordered
[2024-06-05 13:03] LABS: C Reactive Protein 13.65 mg/dL (< or = 0.50)
[2024-06-05] MEDS: traMADoL HCL 50 MG TABLET PO (14:13)
--- NOTE | 2024-06-05 14:20 | HO.WOUND ---
Addendum entered by Abby Hammer RN 06/06/24 07:52: 06/06/24 Duplicate wound consult placed - no new skin integrity concerns noted. no new topical recommendations made at this time. Original Note: Wound Consult: Initial 69yr old male admitted to [facility] on 06/03/24 - See progress notes and H&P for detailed history.? Wound consult placed for Left Leg Cellulitis and Left Shoulder /back rash.? Patient agreeable to assessment and photo documentation.? The Left leg was assessed and noted for redness no open wound noted- no weeping noted. The tissue remains intact and chart review reveals redness is lessened. There are no topical interventions needed at this time. The left back was noted for irregular pattern of pigmentation changes they appear to look like stretch diaz. Per patient statements the skin changes have been there for many years now - he reports he recently went to [facility] and the left back site was biopsied he has follow up in 2 weeks for results and treatment. He reports he has in the past used topical steroids and antifungal treatments that have helped with symptom management. Currently he denies itching. The site does not appear consistent with traditional fungal dermatitis. As this time patient reports the site is asymptomatic and as long as that is the case I do not have topical recommendations. 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 The left foot is noted for old injures and pigmentation changes, tissue remains intact and no pressure injuries noted at this time. Left Lateral Foot intact pigmentation changes Left Plantar Foot - old injury - resurfaced and healed site Left Leg Right Leg Left shoulder / back - intact tissue Right Back Re-consult wound care Nurse for wound development or skin changes.
--- NOTE | 2024-06-05 16:07 | W.PM.IDCN ---
History of Present Illness Data of Consult Service Date: 06/04/24 Requesting physician: Flora Shaver Primary Care Provider: Glenroy Renee CNP HPI Reason for consult: recurrent LLE cellulitis spreading to back and pannus He has had recurrent RLE cellulitis. He has had redness last three to four days but no tinea pedis. He came to hosptial He has high BMI. Review of Systems Review of Systems: Yes all other systems are reviewed and are negative PMFSH Past Medical History Medical History TRACY on CPAP T2DM (type 2 diabetes mellitus) CKD (chronic kidney disease) Charcot joint of foot Obesity hypoventilation syndrome A-fib Morbid obesity with BMI of 60.0-69.9, adult Family History Family history: reviewed and not pertinent Social History Social History Household Members Other:: pen[facility]entiary Patient Tobacco Use Status: Never used Tobacco Second Hand Smoke Exposure: No Advance Directives Date on File: 06/04/24 service: No Meds Allergies Allergy/AdvReac Type Severity Reaction Status Date / Time No Known Allergies Allergy Verified 06/03/24 18:38 Active Medications: Current Medications Acetaminophen (Acetaminophen 325 Mg Tablet) 975 mg PO Q6H PRN PRN Reason: Pain, Mild 1-3,fever,headache Last Admin: 06/04/24 19:21 Dose: 975 mg Albuterol/Ipratropium (Albuterol/Iprat 2.5/0.5mg 3 Ml Ampul.Neb) 3 ml INHALE BID [facility] Last Admin: 06/05/24 09:17 Dose: 3 ml Apixaban (Apixaban 5 Mg Tablet) 5 mg PO BID [facility] Last Admin: 06/05/24 08:40 Dose: 5 mg Atorvastatin Calcium (Atorvastatin Calcium 20 Mg Tablet) 20 mg PO DAILY [facility] Last Admin: 06/04/24 09:24 Dose: 20 mg Bisacodyl (Bisacodyl 10 Mg Supp.Rect) 10 mg NM DAILY PRN PRN Reason: constipation if no BM for 8 hours after MOM Calcium Carbonate (Calcium Carbonate 750 Mg Tab.Chew) 750 mg PO Q4H PRN PRN Reason: Heartburn Calcium Carbonate (Calcium Carbonate 750 Mg Tab.Chew) 750 mg PO DAILY [facility] Last Admin: 06/05/24 08:40 Dose: 750 mg Clotrimazole (Clotrimazole 1 % Cream 15 Gm Tube) 1 appl TOPICAL BID [facility]; Protocol Last Admin: 06/05/24 08:51 Dose: 1 appl Dicyclomine HCl (Dicyclomine Hcl 10 Mg Capsule) 10 mg PO BID [facility] Last Admin: 06/05/24 08:40 Dose: 10 mg Escitalopram Oxalate (Escitalopram Oxalate 20 Mg Tablet) 20 mg PO DAILY [facility] Last Admin: 06/05/24 08:40 Dose: 20 mg Ferrous Sulfate (Ferrous Sulfate 324 Mg Tablet.Dr) 324 mg PO DAILY [facility] Last Admin: 06/05/24 08:40 Dose: 324 mg Fluticasone Propionate (Fluticasone Propionate Nasal 16 Gm [place]) 1 spray NOSTRIL-B DAILY [facility] Last Admin: 06/05/24 08:51 Dose: 1 spray Fluticasone/Vilanterol (Fluticasone/Vilanterol 200/25 Blst.W.Dev) 1 puff INHALE RDAILY [facility] Last Admin: 06/05/24 09:17 Dose: 1 puff Furosemide (Furosemide 40 Mg/4 Ml Vial) 40 mg IVPUSH DAILY [facility]; Protocol Last Admin: 06/05/24 10:27 Dose: 40 mg Gabapentin (Gabapentin 100 Mg Capsule) 100 mg PO BID [facility] Last Admin: 06/05/24 08:40 Dose: 100 mg Piperacillin Sod/Tazobactam (Sod 3.375 gm/ Sodium Chloride) 50 mls @ 100 mls/hr IV Q6H [facility] Last Infusion: 06/05/24 11:20 Dose: Infused Daptomycin 700 mg/ Sodium (Chloride) 64 mls @ 100 mls/hr IV DAILY [facility] Last Infusion: 06/05/24 10:16 Dose: Infused Lorazepam (Lorazepam 0.5 Mg Tablet) 0.5 mg PO Q12H PRN PRN Reason: Anxiety Magnesium Hydroxide (Milk Of Magnesia 30 Ml Oral.Susp) 30 ml PO DAILY PRN PRN Reason: Constipation Last Admin: 06/04/24 21:51 Dose: 30 ml Magnesium Oxide (Magnesium Oxide 400 Mg Tablet) 400 mg PO DAILY [facility] Last Admin: 06/05/24 08:40 Dose: 400 mg Melatonin (Melatonin 3 Mg Tablet) 9 mg PO BEDTIME [facility] Last Admin: 06/04/24 20:23 Dose: 9 mg Metoprolol Succinate (Metoprolol Succinate Er 50 Mg Tab.Er.24h) 50 mg PO DAILY [facility]; Protocol Last Admin: 06/05/24 08:40 Dose: 50 mg Nitroglycerin (Nitroglycerin 0.4 Mg Tab.Subl) 0.4 mg SUBLINGUAL Q5M PRN PRN Reason: Chest Pain Omeprazole (Omeprazole 20 Mg Capsule.Dr) 20 mg PO DAILY@0630 [facility] Last Admin: 06/05/24 06:06 Dose: 20 mg Ondansetron HCl (Ondansetron Hcl 4 Mg/2 Ml Vial) 4 mg IVPUSH Q8H PRN PRN Reason: Nausea and Vomiting Prednisone (Prednisone 10 Mg Tablet) 30 mg PO DAILY [facility] Last Admin: 06/05/24 08:40 Dose: 30 mg Sodium Chloride (0.9 % Sodium Chloride Flush 3 Ml Syringe) 3 ml IVFLUSH QSHIFT [facility] Last Admin: 06/05/24 08:40 Dose: 3 ml Sodium Chloride (Sodium Chloride 0.65 % Nasal 44 Ml Sprbtl) 2 spray NOSTRIL-B Q6H PRN PRN Reason: Nasal Congestion Tamsulosin HCl (Tamsulosin Hcl 0.4 Mg Capsule) 0.8 mg PO BEDTIME [facility] Last Admin: 06/04/24 20:23 Dose: 0.8 mg Tramadol HCl (Tramadol Hcl 50 Mg Tablet) 50 mg PO Q12H PRN PRN Reason: pain related to left lower cellulitis Last Admin: 06/05/24 14:13 Dose: 50 mg Vitamin D (Cholecalciferol (Vitamin D3) 25 Mcg Tablet) 125 mcg PO DAILY [facility] Last Admin: 06/05/24 08:40 Dose: 125 mcg Home Medications ?Medication ?Instructions ?Recorded ?Confirmed ?Last Taken ?Type acetaminophen 325 mg tablet 650 mg PO Q6H PRN Pain or fever 06/04/24 06/04/24 Unknown History apixaban 5 mg tablet (Eliquis) 5 mg PO BID 06/04/24 06/04/24 Unknown History bisacodyl 10 mg rectal suppository 10 mg NM DAILY PRN constipation if 06/04/24 06/04/24 Unknown History no BM for 8 hours after MOM calcium carbonate 600 mg PO DAILY 06/04/24 06/04/24 Unknown History cephalexin 500 mg capsule 500 mg PO QID 06/04/24 06/04/24 Unknown History cholecalciferol (vitamin D3) 125 125 mcg PO DAILY 06/04/24 06/04/24 Unknown History mcg (5,000 unit) tablet (Vitamin D3) clotrimazole-betamethasone 1 1 appl topical BID 06/04/24 06/04/24 Unknown History %-0.05 % lotion dicyclomine 10 mg capsule 10 mg PO BID 06/04/24 06/04/24 Unknown History dorzolamide-timolol (PF) 2 %-0.5 % 1 drp ophthalmic (eye) DAILY 06/04/24 06/04/24 Unknown History eye drops in a dropperette (Cosopt (PF)) escitalopram oxalate 20 mg tablet 20 mg PO DAILY 06/04/24 06/04/24 Unknown History ferrous sulfate 325 mg (65 mg 325 mg PO DAILY 06/04/24 06/04/24 Unknown History iron) tablet fluticasone propionate 50 1 spray intranasal DAILY 06/04/24 06/04/24 Unknown History mcg/actuation nasal spray,suspension furosemide 40 mg tablet 40 mg PO Q48H 06/04/24 06/04/24 Unknown History gabapentin 100 mg capsule 100 mg PO BID 06/04/24 06/04/24 Unknown History insulin lispro 100 unit/mL 1 sliding scale dose subcut 06/04/24 06/04/24 Unknown History subcutaneous solution (Humalog USEASDIRECTD U-100 Insulin) ipratropium 0.5 mg-albuterol 3 mg 3 ml inhalation BID 06/04/24 06/04/24 Unknown History (2.5 mg base)/3 mL nebulization soln lorazepam 0.5 mg tablet (Ativan) 0.5 mg PO Q12H PRN Anxiety 06/04/24 06/04/24 Unknown History magnesium oxide 400 mg PO DAILY 06/04/24 06/04/24 Unknown History melatonin 10 mg tablet 10 mg PO BEDTIME 06/04/24 06/04/24 Unknown History methylprednisolone 2 mg tablet 10 mg PO DAILY 06/04/24 06/04/24 Unknown History methylprednisolone 4 mg tablet 20 mg PO DAILY 06/04/24 06/04/24 Unknown History metoprolol succinate 50 mg 50 mg PO DAILY 06/04/24 06/04/24 Unknown History tablet,extended release 24 hr mineral oil 3 appl topical Q48H BOTH EARS 06/04/24 06/04/24 Unknown History mometasone-formoterol HFA 200 2 puff inhalation BID 06/04/24 06/04/24 Unknown History mcg-5 mcg/actuation aerosol inhaler (Dulera) nitroglycerin 0.4 mg sublingual 0.4 mg sublingual Q5M PRN Chest 06/04/24 06/04/24 Unknown History tablet (Nitrostat) Pain pantoprazole 40 mg tablet,delayed 40 mg PO DAILY@0630 06/04/24 06/04/24 Unknown History release rosuvastatin 5 mg tablet 5 mg PO DAILY 06/04/24 06/04/24 Unknown History salicylic acid 6 % topical gel 1 appl topical BID 06/04/24 06/04/24 Unknown History sodium chloride 0.65 % nasal spray 2 spray intranasal Q6H PRN Nasal 06/04/24 06/04/24 Unknown History aerosol (Saline Nasal Mist) Congestion tamsulosin 0.4 mg capsule 0.8 mg PO BEDTIME 06/04/24 06/04/24 Unknown History tramadol 50 mg tablet 50 mg PO Q12H PRN pain related to 06/04/24 06/04/24 Unknown History left lower cellulitis Physical Exam Vital Signs: Vital Signs: Last Vital Signs Temp 97.4 F 06/05/24 15:20 Pulse 93 06/05/24 15:20 Resp 20 06/05/24 15:20 BP 115/72 06/05/24 15:20 Pulse Ox 95 06/05/24 15:20 O2 Del Method Room Air 06/05/24 15:20 BMI result Body Mass Index 66.6 Const: General: cooperative HEENT: Head: Yes normal to inspection Face and sinus: Yes normal facial exam Mouth: Normal oral and palatal mucosa present Teeth and gingiva: dentition normal Eyes: General: appearance normal, both eyes and all related structures Pupils: Equal, round and reactive pupils present Resp: Effort & Inspection: normal respiratory effort Cardio: Rate: regular rate Rhythm: regular rhythm GI: Palpation (GI): Soft to palpation and nontender : General: Yes no CVA tenderness Back/Spine/Pelvis: Back: no CVA tenderness Skin: Other: redness LLE and back and pannus no tinea pedis Neuro: General: moves all extremities Cranial nerves: Yes Equal, round and reactive pupils present Extrem: General: Yes normal to inspection Psych: Appearance: grossly normal Results Labs 06/05/24 06:23 06/05/24 06:23 Labs: Short CBC 06/05/24 Range/Units 06:23 WBC 5.1 (4.8-10.8) X10*3/uL Hgb 12.2 L (14.0-18.0) g/dl Hct 38.0 L (42.0-52.0) % Plt Count 152 L (160-400) X10*3/uL BMP 06/05/24 06:23 Sodium 139 Potassium 4.0 Chloride 104 Carbon Dioxide 28 BUN 25 H Creatinine 0.71 Calcium 8.5 Microbiology Microbiology Results: Microbiology 06/03/24 19:13 Blood - Venous Blood Culture - Preliminary No growth after 24 hours. 06/03/24 18:58 Blood - Venous Blood Culture - Preliminary No growth after 24 hours. Assessment and Plan (1) Intertrigo: Status: Acute (2) Cellulitis of left leg: Status: Acute Plan He has possible staph or strep or vasculiits. He can receive Cefepima and linezolid for decrease bacterial burder and toxin rather than Daptomycin. He is on limited SSRI dose ,not concern for significant interaction Possible po PCN prevention when better although there is no culture.
[2024-06-05] MEDS: Acetaminophen 325 MG TABLET 975 MG PO (17:48)
[2024-06-05] MEDS: Tamsulosin HCL 0.4 MG CAPSULE 0.8 MG PO (22:23)
[2024-06-05] MEDS: Melatonin 3 MG TABLET 9 MG PO (22:24)
[2024-06-06] VITALS (9 sets, daily range): BP systolic 110–137; BP diastolic 65–79; PULSE 68–90; RESP 16–20; TEMP 36–36.9; O2SAT 92–98
[2024-06-06] MEDS: Acetaminophen 325 MG TABLET 975 MG PO ×2 (00:12→20:18)
[2024-06-06] MEDS: Piperacillin Sodium/Tazobactam 3.375 GM in 0.9 % Sodium Chloride 50 ML IV (03:43)
[2024-06-06] MEDS: Omeprazole 20 MG CAPSULE.DR PO (05:36)
[2024-06-06 06:42] LABS: MANUAL DIFF FLAG NO
[2024-06-06 06:49] LABS: Basophils Percent Auto 0.4 % (0-2); Eosinophils Percent Auto 0.2 % (0-4); Hematocrit 36.2 % (42.0-52.0); Hemoglobin 11.8 g/dl (14.0-18.0); Imm Gran Abs Auto 0.08 X10*3/uL (0.00-0.03); Imm Gran Pct Auto 1.5 % (0.0-0.4); Lymphocytes Absolute Auto 0.7 X10*3/uL (1.2-4.9); Lymphocytes Percent Auto 12.7 % (20-40); Mean Corpuscular HGB Conc 32.6 g/dl (31.0-36.0); Mean Corpuscular Hemoglobin 28.2 pg (27.0-33.0); Mean Corpuscular Volume 86.4 fL (80.0-98.0); Mean Platelet Volume 9.8 fL (9.4-12.4); Monocytes Absolute Auto 0.4 X10*3/uL (0.1-1.2); Monocytes Percent Auto 7.2 % (2-11); Neutrophils Absolute Auto 4.1 x10*3/uL (2.0-8.3); Platelet Count 149 X10*3/uL (160-400); Red Blood Count 4.19 X10*6/uL (4.60-5.80); Red Cell Distribution Width 14.5 % (11.0-16.0); White Blood Count 5.3 X10*3/uL (4.8-10.8)
[2024-06-06 06:59] LABS: Anion Gap 11 (12-20); Blood Urea Nitrogen 28 mg/dL (9-16); Calcium 8.5 mg/dL (8.4-10.2); Carbon Dioxide 29 mmol/L (22-29); Chloride 103 mmol/L (96-108); Creatinine Clr Calc Pharmacy 142.1; Estimated Glomerular Filt Rate > 60; Glucose Random 118 mg/dL (60-115); Potassium 3.9 mmol/L (3.3-5.1); Sodium 139 mmol/L (135-145)
[2024-06-06] MEDS: cefEPime HCl 2 GM in 0.9 % Sodium Chloride 50 ML IV ×3 (08:30→23:31)
[2024-06-06] MEDS: 0.9 % Sodium Chloride Flush 3 ML SYRINGE IVFLUSH ×3 (08:34→20:20)
[2024-06-06] MEDS: Furosemide 40 MG/4 ML VIAL IVPUSH (08:36)
[2024-06-06] MEDS: Escitalopram Oxalate 20 MG TABLET PO (08:39)
[2024-06-06] MEDS: Magnesium Oxide 400 MG TABLET PO (08:39)
[2024-06-06] MEDS: Dicyclomine HCl 10 MG CAPSULE PO ×2 (08:39→20:20)
[2024-06-06] MEDS: predniSONE 10 MG TABLET 30 MG PO (08:39)
[2024-06-06] MEDS: Calcium Carbonate 750 MG TAB.CHEW PO (08:39)
[2024-06-06] MEDS: Atorvastatin Calcium 20 MG TABLET PO (08:39)
[2024-06-06] MEDS: Apixaban 5 MG TABLET PO ×2 (08:39→20:16)
[2024-06-06] MEDS: Gabapentin 100 MG CAPSULE PO ×2 (08:39→20:19)
[2024-06-06] MEDS: Cholecalciferol (Vitamin D3) 25 MCG TABLET 125 MCG PO (08:39)
[2024-06-06] MEDS: Metoprolol Succinate ER 50 MG TAB.ER.24H PO (08:40)
[2024-06-06] MEDS: Ferrous Sulfate 324 MG TABLET.DR PO (08:40)
[2024-06-06] MEDS: Fluticasone Propionate Nasal 16 GM SPRAY 1 SPRAY NOSTRIL-B (08:43)
[2024-06-06] MEDS: Clotrimazole 1 % Cream 15 GM TUBE 1 APPL TOPICAL ×2 (08:47→20:21)
[2024-06-06] MEDS: Linezolid/D5W 600 MG/300 ML PIGGYBACK 300 MG IV ×2 (09:12→20:05)
[2024-06-06] MEDS: traMADoL HCL 50 MG TABLET PO ×2 (09:38→21:55)
--- NOTE | 2024-06-06 13:17 | HO.PM.IMPN ---
Subjective Subjective Date of Service: 06/06/24 Interval History: no fever redness gradually improving legs very swollen Review of Systems Review of Systems: Yes all other systems are reviewed and are negative Physical Exam Vital Signs: Vital Signs: Last Vital Signs Temp 97.1 F 06/06/24 11:53 Pulse 76 06/06/24 11:53 Resp 20 06/06/24 11:53 BP 137/79 06/06/24 11:53 Pulse Ox 92 06/06/24 11:53 O2 Del Method Room Air 06/06/24 11:53 BMI result Body Mass Index 66.6 Gen: in no acute distress HEENT: sclera anicteric, moist mucus membranes Neck: supple Lungs: clear to auscultation bilaterally Heart: regular rate and rhythm, no murmurs Abd: soft, non-tender, non-distended, obese Ext: 2+ bilateral leg edema with venous stasis changes Skin: bright-red erythema LLE from hip to foot without any abscess or drainage, scaly/erythematous maculopapular /violaceous rash on back Neuro: alert and oriented x3, no focal findings Psych: appropriate affect Objective Data Active Medications Acetaminophen (Acetaminophen 325 Mg Tablet) 975 mg PO Q6H PRN PRN Reason: Pain, Mild 1-3,fever,headache Last Admin: 06/06/24 00:12 Dose: 975 mg Documented By: BALJINDER Albuterol/Ipratropium (Albuterol/Iprat 2.5/0.5mg 3 Ml Ampul.Neb) 3 ml INHALE BID [facility] Last Admin: 06/06/24 08:39 Dose: Not Given Documented By: DANIEL Non-Admin Reason: pt unavailable Apixaban (Apixaban 5 Mg Tablet) 5 mg PO BID [facility] Last Admin: 06/06/24 08:39 Dose: 5 mg Documented By: ANGELICA Atorvastatin Calcium (Atorvastatin Calcium 20 Mg Tablet) 20 mg PO DAILY [facility] Last Admin: 06/06/24 08:39 Dose: 20 mg Documented By: ANGELICA Bisacodyl (Bisacodyl 10 Mg Supp.Rect) 10 mg AR DAILY PRN PRN Reason: constipation if no BM for 8 hours after MOM Calcium Carbonate (Calcium Carbonate 750 Mg Tab.Chew) 750 mg PO Q4H PRN PRN Reason: Heartburn Calcium Carbonate (Calcium Carbonate 750 Mg Tab.Chew) 750 mg PO DAILY [facility] Last Admin: 06/06/24 08:39 Dose: 750 mg Documented By: ANGELICA Clotrimazole (Clotrimazole 1 % Cream 15 Gm Tube) 1 appl TOPICAL BID [facility]; Protocol Last Admin: 06/06/24 08:47 Dose: 1 appl Documented By: ANGELICA Dicyclomine HCl (Dicyclomine Hcl 10 Mg Capsule) 10 mg PO BID [facility] Last Admin: 06/06/24 08:39 Dose: 10 mg Documented By: ANGELICA Escitalopram Oxalate (Escitalopram Oxalate 20 Mg Tablet) 20 mg PO DAILY [facility] Last Admin: 06/06/24 08:39 Dose: 20 mg Documented By: ANGELICA Ferrous Sulfate (Ferrous Sulfate 324 Mg Tablet.Dr) 324 mg PO DAILY [facility] Last Admin: 06/06/24 08:40 Dose: 324 mg Documented By: ANGELICA Fluticasone Propionate (Fluticasone Propionate Nasal 16 Gm [place]) 1 spray NOSTRIL-B DAILY [facility] Last Admin: 06/06/24 08:43 Dose: 1 spray Documented By: ANGELICA Fluticasone/Vilanterol (Fluticasone/Vilanterol 200/25 Blst.W.Dev) 1 puff INHALE RDAILY [facility] Last Admin: 06/06/24 08:39 Dose: Not Given Documented By: DANIEL Non-Admin Reason: pt unavailable Furosemide (Furosemide 40 Mg/4 Ml Vial) 40 mg IVPUSH DAILY [facility]; Protocol Last Admin: 06/06/24 08:36 Dose: 40 mg Documented By: ANGELICA Gabapentin (Gabapentin 100 Mg Capsule) 100 mg PO BID [facility] Last Admin: 06/06/24 08:39 Dose: 100 mg Documented By: ANGELICA Cefepime HCl 2 gm/ Sodium (Chloride) 50 mls @ 100 mls/hr IV Q8H [facility] Last Infusion: 06/06/24 09:14 Dose: Infused Documented By: ANGELICA Linezolid (Zyvox/D5w) 600 mg in 300 mls @ 300 mls/hr IV Q12H [facility] Last Infusion: 06/06/24 10:49 Dose: Infused Documented By: ANGELICA Lorazepam (Lorazepam 0.5 Mg Tablet) 0.5 mg PO Q12H PRN PRN Reason: Anxiety Magnesium Hydroxide (Milk Of Magnesia 30 Ml Oral.Susp) 30 ml PO DAILY PRN PRN Reason: Constipation Last Admin: 06/04/24 21:51 Dose: 30 ml Documented By: DANIEL Magnesium Oxide (Magnesium Oxide 400 Mg Tablet) 400 mg PO DAILY [facility] Last Admin: 06/06/24 08:39 Dose: 400 mg Documented By: ANGELICA Melatonin (Melatonin 3 Mg Tablet) 9 mg PO BEDTIME [facility] Last Admin: 06/05/24 22:24 Dose: 9 mg Documented By: BALJINDER Metoprolol Succinate (Metoprolol Succinate Er 50 Mg Tab.Er.24h) 50 mg PO DAILY [facility]; Protocol Last Admin: 06/06/24 08:40 Dose: 50 mg Documented By: ANGELICA Nitroglycerin (Nitroglycerin 0.4 Mg Tab.Subl) 0.4 mg SUBLINGUAL Q5M PRN PRN Reason: Chest Pain Omeprazole (Omeprazole 20 Mg Capsule.Dr) 20 mg PO DAILY@0630 [facility] Last Admin: 06/06/24 05:36 Dose: 20 mg Documented By: BALJINDER Ondansetron HCl (Ondansetron Hcl 4 Mg/2 Ml Vial) 4 mg IVPUSH Q8H PRN PRN Reason: Nausea and Vomiting Prednisone (Prednisone 10 Mg Tablet) 30 mg PO DAILY [facility] Last Admin: 06/06/24 08:39 Dose: 30 mg Documented By: ANGELICA Sodium Chloride (0.9 % Sodium Chloride Flush 3 Ml Syringe) 3 ml IVFLUSH QSHIFT [facility] Last Admin: 06/06/24 08:34 Dose: 3 ml Documented By: ANGELICA Sodium Chloride (Sodium Chloride 0.65 % Nasal 44 Ml Sprbtl) 2 spray NOSTRIL-B Q6H PRN PRN Reason: Nasal Congestion Tamsulosin HCl (Tamsulosin Hcl 0.4 Mg Capsule) 0.8 mg PO BEDTIME [facility] Last Admin: 06/05/24 22:23 Dose: 0.8 mg Documented By: BALJINDER Tramadol HCl (Tramadol Hcl 50 Mg Tablet) 50 mg PO Q12H PRN PRN Reason: pain related to left lower cellulitis Last Admin: 06/06/24 09:38 Dose: 50 mg Documented By: ANGELICA Vitamin D (Cholecalciferol (Vitamin D3) 25 Mcg Tablet) 125 mcg PO DAILY [facility] Last Admin: 06/06/24 08:39 Dose: 125 mcg Documented By: ANGELICA Labs 06/06/24 05:24 06/06/24 05:24 Labs: Laboratory Results - last 24 hr 06/06/24 05:24 MCV 86.4 MCH 28.2 MCHC 32.6 RDW 14.5 Plt Count 149 L MPV 9.8 Immature Gran % (Auto) 1.5 H Neut % (Auto) 78.0 H Lymph % (Auto) 12.7 L [place] % (Auto) 7.2 Eos % (Auto) 0.2 Baso % (Auto) 0.4 Lymph # (Auto) 0.7 L [place] # (Auto) 0.4 Eos # (Auto) 0.0 Baso # (Auto) 0.0 Abs Immat Gran (auto) 0.08 H Absolute Neuts (auto) 4.1 Absolute Nucleated RBC 0.000 Nucleated RBC % (auto) 0.0 Anion Gap 11 L Estim Creat Clear Calc 142.1 Estimated GFR > 60 Random Glucose 118 H Calcium 8.5 Microbiology Microbiology Results: Microbiology 06/03/24 19:13 Blood Culture - Preliminary Blood - Venous No growth after 48 hours. 06/03/24 18:58 Blood Culture - Preliminary Blood - Venous No growth after 48 hours. Assessment and Plan (1) Cellulitis of left leg: Status: Acute Plan d4 for 69yo M with morbid obesity, AF on apixaban, OHS, Charcot foot LLE, TRACY on CPAP, solitary kidney, ?DM2 with recent admission to [facility] for LLE cellulitis after which he was discharged to [facility]; sent in with recurrent cellulitis that did respond to 2 rounds of cephalexin LLE cellulitis - US negative for DVT, 06/03-06/06 pip-dalila, 06/03 vanco, 06/04-06/06 daptomycin; per ID change to cefepime and linezolid 06/06- rash - biopsy records from [facility] 05/29/24: hyperkeratosis, parakeratosis, inflamed scale crust and a superficial perivascular mixed inflammatory infiltrate with neutrophil exocystosis. No fungus, no lymphoid atypica, no dermatomyositis. Ddx: resolving impetigo, drug eruption, irritant dermatitis. adrenal insufficiency - discussed with doctor from [facility], Dr Ferrer, as well as his PCP Dr Renee. Will change from prednisone 30 mg/d back to prior regimen of hydrocortisone 20 mg qam + 10 mg qpm intertrigo - clotrimazole cream BID under pannus and in skin folds pAF - continue apixaban, metoprolol succinate HLD - statin venous stasis - furosemide- will continue IV for a few doses OHS TRACY - CPAP at night mood disorder - escitalopram ?DM2 - A1c only 5.3, will d/c insulin + fingersticks VTE ppx - apixaban dispo - eventual return to STR In my clinical judgment, the patient requires continued inpatient hospitalization for the following reasons: IV ABX Total time managing care of this patient today: 40 minutes. Quality Stroke Does the patient have a stroke diagnosis?: No VTE Prior VTE?: No VTE Risk Level:: Medical - moderate - high VTE Device Contraindication: Treatment Not Indicated VTE Drug Contraindication: N/A - Med Ordered
--- NOTE | 2024-06-06 15:55 | MHC.CM.PN ---
EMR REVIEWED AND PER MD ROUNDS, PT IS NOT MEDICALLY CLEARED FOR DC BACK TO [facility] FOR [facility]. [facility] UPDATED VIA [facility]. [facility]T. CONTINUES TO RECOMMEND STR. CM SPOKE WITH CM JT) AT [facility] WHO REQUESTED CLINICAL UPDATE AND REQUESTS A CALL WHEN PT IS PROJECTED TO DC THEY NEED TO SET UP TRANSPORT BACK TO [facility]. CM WILL CONTINUE TO FOLLOW FOR ANY CHANGE TO PLAN.
[2024-06-06] MEDS: Hydrocortisone 10 MG TABLET PO (16:25)
[2024-06-06] MEDS: Albuterol/Iprat 2.5/0.5MG 3 ML AMPUL.NEB INHALE (19:51)
[2024-06-06] MEDS: Melatonin 3 MG TABLET 9 MG PO (20:16)
[2024-06-06] MEDS: Tamsulosin HCL 0.4 MG CAPSULE 0.8 MG PO (20:20)
--- NOTE | 2024-06-06 23:28 | PM.IDPN ---
Subjective Subjective Date of Service: 06/06/24 Critical Care Time (minutes): 15 Comment: He feels better. His body and leg are less swollen and red Objective Data Labs 06/06/24 05:24 06/06/24 05:24 Labs: Laboratory Results - last 24 hr 06/06/24 05:24 WBC 5.3 RBC 4.19 L Hgb 11.8 L Hct 36.2 L MCV 86.4 MCH 28.2 MCHC 32.6 RDW 14.5 Plt Count 149 L MPV 9.8 Immature Gran % (Auto) 1.5 H Neut % (Auto) 78.0 H Lymph % (Auto) 12.7 L [place] % (Auto) 7.2 Eos % (Auto) 0.2 Baso % (Auto) 0.4 Lymph # (Auto) 0.7 L [place] # (Auto) 0.4 Eos # (Auto) 0.0 Baso # (Auto) 0.0 Abs Immat Gran (auto) 0.08 H Absolute Neuts (auto) 4.1 Absolute Nucleated RBC 0.000 Nucleated RBC % (auto) 0.0 Sodium 139 Potassium 3.9 Chloride 103 Carbon Dioxide 29 Anion Gap 11 L BUN 28 H Creatinine 0.81 Estim Creat Clear Calc 142.1 Estimated GFR > 60 Random Glucose 118 H Calcium 8.5 Microbiology Microbiology Results: Microbiology 06/03/24 19:13 Blood - Venous Blood Culture - Preliminary No growth after 48 hours. 06/03/24 18:58 Blood - Venous Blood Culture - Preliminary No growth after 48 hours. Physical Exam Vital Signs: Vital Signs: Last Vital Signs Temp 98.4 F 06/06/24 23:13 Pulse 89 06/06/24 23:13 Resp 18 06/06/24 23:13 BP 129/70 06/06/24 23:13 Pulse Ox 97 06/06/24 23:13 O2 Del Method Room Air 06/06/24 23:13 BMI result Body Mass Index 66.6 Const: General: cooperative HEENT: Head: Yes normal to inspection Face and sinus: Yes normal facial exam Mouth: Normal oral and palatal mucosa present Teeth and gingiva: dentition normal Eyes: General: appearance normal, both eyes and all related structures Pupils: Equal, round and reactive pupils present Resp: Effort & Inspection: normal respiratory effort Cardio: Rate: regular rate Rhythm: regular rhythm GI: Palpation (GI): Soft to palpation and nontender : General: Yes no CVA tenderness Back/Spine/Pelvis: Other: less red Back: no CVA tenderness Skin: Other: less red pannus and left leg Neuro: General: moves all extremities Cranial nerves: Yes Equal, round and reactive pupils present Extrem: General: Yes normal to inspection Psych: Appearance: grossly normal Assessment and Plan Assessment and plan (1) Rash: Status: Acute Assessment and Plan: Cellulitis appears to be resolving When improved po linezolid for total 7-10 days He says clotrimazole/betametasone cream .05% prescribed by [facility] helped him as well. Time Spent With Patient Time: Total time managing care of this patient today ____ minutes.
[2024-06-07] VITALS (9 sets, daily range): BP systolic 111–135; BP diastolic 66–81; PULSE 59–94; RESP 17–20; TEMP 36.1–36.4; O2SAT 96–99
[2024-06-07] MEDS: Omeprazole 20 MG CAPSULE.DR PO (05:41)
[2024-06-07 06:48] LABS: Anion Gap 12 (12-20); Blood Urea Nitrogen 31 mg/dL (9-16); C Reactive Protein 2.96 mg/dL (< or = 0.50); Calcium 8.3 mg/dL (8.4-10.2); Carbon Dioxide 26 mmol/L (22-29); Chloride 102 mmol/L (96-108); Creatinine Clr Calc Pharmacy 153.5; Estimated Glomerular Filt Rate > 60; Glucose Random 97 mg/dL (60-115); Potassium 3.9 mmol/L (3.3-5.1); Sodium 136 mmol/L (135-145)
[2024-06-07] MEDS: Albuterol/Iprat 2.5/0.5MG 3 ML AMPUL.NEB INHALE ×2 (08:16→18:55)
[2024-06-07] MEDS: Fluticasone/Vilanterol 200/25 BLST.W.DEV 1 PUFF INHALE (08:16)
[2024-06-07] MEDS: Linezolid/D5W 600 MG/300 ML PIGGYBACK 300 MG IV ×2 (10:04→19:13)
[2024-06-07] MEDS: cefEPime HCl 2 GM in 0.9 % Sodium Chloride 50 ML IV ×3 (10:04→23:29)
[2024-06-07] MEDS: Apixaban 5 MG TABLET PO ×2 (10:06→20:22)
[2024-06-07] MEDS: Escitalopram Oxalate 20 MG TABLET PO (10:06)
[2024-06-07] MEDS: Magnesium Oxide 400 MG TABLET PO (10:06)
[2024-06-07] MEDS: Gabapentin 100 MG CAPSULE PO ×2 (10:06→20:22)
[2024-06-07] MEDS: Hydrocortisone 10 MG TABLET 20 MG PO (10:06)
[2024-06-07] MEDS: Dicyclomine HCl 10 MG CAPSULE PO ×2 (10:06→20:21)
[2024-06-07] MEDS: Atorvastatin Calcium 20 MG TABLET PO (10:06)
[2024-06-07] MEDS: Furosemide 40 MG TABLET PO (10:07)
[2024-06-07] MEDS: Ferrous Sulfate 324 MG TABLET.DR PO (10:07)
[2024-06-07] MEDS: Cholecalciferol (Vitamin D3) 25 MCG TABLET 125 MCG PO (10:07)
[2024-06-07] MEDS: Calcium Carbonate 750 MG TAB.CHEW PO (10:07)
[2024-06-07] MEDS: Fluticasone Propionate Nasal 16 GM SPRAY 1 SPRAY NOSTRIL-B (10:27)
[2024-06-07] MEDS: Clotrimazole 1 % Cream 15 GM TUBE 1 APPL TOPICAL ×2 (10:27→20:23)
--- NOTE | 2024-06-07 12:19 | MHC.CM.PN ---
Addendum entered by Silvia Pedro, RN 06/07/24 14:19: DC PLAN DISCUSSED W/ PATIENT AND . Original Note: Per MD rounds patient will likely be ready for dc to [facility] tomorrow. [facility] can accept and will work w/ [employer] for [employer]. LM for Rosalie & Maninder MOSQUEDA's @ [employer] to coordinate transport. CM will continue to follow. Rosalie [phone] Maninder [phone]
--- NOTE | 2024-06-07 13:06 | HO.PM.IMPN ---
Subjective Subjective Date of Service: 06/07/24 Interval History: redness improved c/o hand cramps Review of Systems Review of Systems: Yes all other systems are reviewed and are negative Physical Exam Vital Signs: Vital Signs: Last Vital Signs Temp 96.9 F 06/07/24 11:07 Pulse 87 06/07/24 11:07 Resp 20 06/07/24 11:07 BP 127/66 06/07/24 11:07 Pulse Ox 98 06/07/24 11:07 O2 Del Method Room Air 06/07/24 11:07 BMI result Body Mass Index 66.6 Gen: in no acute distress HEENT: sclera anicteric, moist mucus membranes Neck: supple Lungs: clear to auscultation bilaterally Heart: regular rate and rhythm, no murmurs Abd: soft, non-tender, non-distended, obese Ext: 2+ bilateral leg edema with venous stasis changes Skin: improving erythema LLE from hip to foot without any abscess or drainage, scaly maculopapular rash on back Neuro: alert and oriented x3, no focal findings Psych: appropriate affect Objective Data Active Medications Acetaminophen (Acetaminophen 325 Mg Tablet) 975 mg PO Q6H PRN PRN Reason: Pain, Mild 1-3,fever,headache Last Admin: 06/06/24 20:18 Dose: 975 mg Documented By: BALJINDER Albuterol/Ipratropium (Albuterol/Iprat 2.5/0.5mg 3 Ml Ampul.Neb) 3 ml INHALE BID [facility] Last Admin: 06/07/24 08:16 Dose: 3 ml Documented By: KELI Apixaban (Apixaban 5 Mg Tablet) 5 mg PO BID [facility] Last Admin: 06/07/24 10:06 Dose: 5 mg Documented By: LILIA Atorvastatin Calcium (Atorvastatin Calcium 20 Mg Tablet) 20 mg PO DAILY [facility] Last Admin: 06/07/24 10:06 Dose: 20 mg Documented By: LILIA Bisacodyl (Bisacodyl 10 Mg Supp.Rect) 10 mg [place] DAILY PRN PRN Reason: constipation if no BM for 8 hours after MOM Calcium Carbonate (Calcium Carbonate 750 Mg Tab.Chew) 750 mg PO Q4H PRN PRN Reason: Heartburn Calcium Carbonate (Calcium Carbonate 750 Mg Tab.Chew) 750 mg PO DAILY [facility] Last Admin: 06/07/24 10:07 Dose: 750 mg Documented By: LILIA Clotrimazole (Clotrimazole 1 % Cream 15 Gm Tube) 1 appl TOPICAL BID [facility]; Protocol Last Admin: 06/07/24 10:27 Dose: 1 appl Documented By: LILIA Dicyclomine HCl (Dicyclomine Hcl 10 Mg Capsule) 10 mg PO BID [facility] Last Admin: 06/07/24 10:06 Dose: 10 mg Documented By: LILIA Escitalopram Oxalate (Escitalopram Oxalate 20 Mg Tablet) 20 mg PO DAILY [facility] Last Admin: 06/07/24 10:06 Dose: 20 mg Documented By: LILIA Ferrous Sulfate (Ferrous Sulfate 324 Mg Tablet.Dr) 324 mg PO DAILY [facility] Last Admin: 06/07/24 10:07 Dose: 324 mg Documented By: LILIA Fluticasone Propionate (Fluticasone Propionate Nasal 16 Gm [place]) 1 spray NOSTRIL-B DAILY [facility] Last Admin: 06/07/24 10:27 Dose: 1 spray Documented By: LILIA Fluticasone/Vilanterol (Fluticasone/Vilanterol 200/25 Blst.W.Dev) 1 puff INHALE RDAILY [facility] Last Admin: 06/07/24 08:16 Dose: 1 puff Documented By: KELI Furosemide (Furosemide 40 Mg Tablet) 40 mg PO Q48H [facility]; Protocol Last Admin: 06/07/24 10:07 Dose: 40 mg Documented By: LILIA Gabapentin (Gabapentin 100 Mg Capsule) 100 mg PO BID [facility] Last Admin: 06/07/24 10:06 Dose: 100 mg Documented By: LILIA Hydrocortisone (Hydrocortisone 10 Mg Tablet) 20 mg PO DAILY@0900 [facility] Last Admin: 06/07/24 10:06 Dose: 20 mg Documented By: LILIA Hydrocortisone (Hydrocortisone 10 Mg Tablet) 10 mg PO DAILY@1700 [facility] Last Admin: 06/06/24 16:25 Dose: 10 mg Documented By: ANGELICA Cefepime HCl 2 gm/ Sodium (Chloride) 50 mls @ 100 mls/hr IV Q8H [facility] Last Infusion: 06/07/24 10:40 Dose: Infused Documented By: LILIA Linezolid (Zyvox/D5w) 600 mg in 300 mls @ 300 mls/hr IV Q12H [facility] Last Infusion: 06/07/24 11:10 Dose: Infused Documented By: LILIA Lorazepam (Lorazepam 0.5 Mg Tablet) 0.5 mg PO Q12H PRN PRN Reason: Anxiety Magnesium Hydroxide (Milk Of Magnesia 30 Ml Oral.Susp) 30 ml PO DAILY PRN PRN Reason: Constipation Last Admin: 06/04/24 21:51 Dose: 30 ml Documented By: MRAICHUYRISYoselin Magnesium Oxide (Magnesium Oxide 400 Mg Tablet) 400 mg PO DAILY [facility] Last Admin: 06/07/24 10:06 Dose: 400 mg Documented By: LILIA Melatonin (Melatonin 3 Mg Tablet) 9 mg PO BEDTIME [facility] Last Admin: 06/06/24 20:16 Dose: 9 mg Documented By: BALJINDER Metoprolol Succinate (Metoprolol Succinate Er 50 Mg Tab.Er.24h) 50 mg PO DAILY [facility]; Protocol Last Admin: 06/07/24 10:32 Dose: Not Given Documented By: LILIA Non-Admin Reason: low HR Nitroglycerin (Nitroglycerin 0.4 Mg Tab.Subl) 0.4 mg SUBLINGUAL Q5M PRN PRN Reason: Chest Pain Omeprazole (Omeprazole 20 Mg Capsule.Dr) 20 mg PO DAILY@0630 [facility] Last Admin: 06/07/24 05:41 Dose: 20 mg Documented By: BALJINDER Ondansetron HCl (Ondansetron Hcl 4 Mg/2 Ml Vial) 4 mg IVPUSH Q8H PRN PRN Reason: Nausea and Vomiting Sodium Chloride (0.9 % Sodium Chloride Flush 3 Ml Syringe) 3 ml IVFLUSH QSHIFT [facility] Last Admin: 06/07/24 07:16 Dose: Not Given Documented By: LILIA Non-Admin Reason: Previously Administered Sodium Chloride (Sodium Chloride 0.65 % Nasal 44 Ml Sprbtl) 2 spray NOSTRIL-B Q6H PRN PRN Reason: Nasal Congestion Tamsulosin HCl (Tamsulosin Hcl 0.4 Mg Capsule) 0.8 mg PO BEDTIME [facility] Last Admin: 06/06/24 20:20 Dose: 0.8 mg Documented By: BALJINDER Tramadol HCl (Tramadol Hcl 50 Mg Tablet) 50 mg PO Q12H PRN PRN Reason: pain related to left lower cellulitis Last Admin: 06/06/24 21:55 Dose: 50 mg Documented By: BALJINDER Vitamin D (Cholecalciferol (Vitamin D3) 25 Mcg Tablet) 125 mcg PO DAILY [facility] Last Admin: 06/07/24 10:07 Dose: 125 mcg Documented By: BRANDTFAA Labs 06/06/24 05:24 06/07/24 05:59 Labs: Laboratory Results - last 24 hr 06/07/24 05:59 Anion Gap 12 Estim Creat Clear Calc 153.5 Estimated GFR > 60 Random Glucose 97 Calcium 8.3 L C-Reactive Protein 2.96 H Assessment and Plan (1) Cellulitis of left leg: Status: Acute Plan d5 for 69yo M with morbid obesity, AF on apixaban, OHS, Charcot foot LLE, TRACY on CPAP, solitary kidney, ?DM2 with recent admission to [facility] for LLE cellulitis after which he was discharged to Rehab; sent in with recurrent cellulitis that did respond to 2 rounds of cephalexin LLE cellulitis - US negative for DVT, 06/03-06/06 pip-dalila, 06/03 vanco, 06/04-06/06 daptomycin; per ID changed to cefepime and linezolid 06/06-, CRP improved rash - biopsy records from [facility] 05/29/24: hyperkeratosis, parakeratosis, inflamed scale crust and a superficial perivascular mixed inflammatory infiltrate with neutrophil exocystosis. No fungus, no lymphoid atypica, no dermatomyositis. Ddx: resolving impetigo, drug eruption, irritant dermatitis. adrenal insufficiency - discussed with doctor from [place], Dr Ferrer, as well as his PCP Dr Renee. Changed from prednisone 30 mg/d back to prior regimen of hydrocortisone 20 mg qam + 10 mg qpm intertrigo - clotrimazole cream BID under pannus and in skin folds pAF - continue apixaban, metoprolol succinate HLD - statin venous stasis - change from IV back to PO furosemide OHS TRACY - CPAP at night mood disorder - escitalopram ?DM2 - A1c only 5.3, d/c'ed insulin + fingersticks VTE ppx - apixaban dispo - eventual return to [facility] In my clinical judgment, the patient requires continued inpatient hospitalization for the following reasons: IV ABX Total time managing care of this patient today: 40 minutes. Quality Stroke Does the patient have a stroke diagnosis?: No VTE Prior VTE?: No VTE Risk Level:: Medical - moderate - high VTE Device Contraindication: Treatment Not Indicated VTE Drug Contraindication: N/A - Med Ordered
[2024-06-07] MEDS: Acetaminophen 325 MG TABLET 975 MG PO ×2 (14:23→20:19)
[2024-06-07] MEDS: Multivitamin TABLET 1 TAB PO (14:23)
[2024-06-07] MEDS: traMADoL HCL 50 MG TABLET PO (14:23)
[2024-06-07] MEDS: Hydrocortisone 10 MG TABLET PO (16:38)
[2024-06-07] MEDS: Tamsulosin HCL 0.4 MG CAPSULE 0.8 MG PO (20:21)
[2024-06-07] MEDS: Melatonin 3 MG TABLET 9 MG PO (20:21)
[2024-06-07] MEDS: 0.9 % Sodium Chloride Flush 3 ML SYRINGE IVFLUSH (20:22)
[2024-06-08] VITALS (9 sets, daily range): BP systolic 109–133; BP diastolic 61–84; PULSE 77–104; RESP 16–20; TEMP 36.2–36.6; O2SAT 93–97
[2024-06-08] MEDS: Omeprazole 20 MG CAPSULE.DR PO (05:38)
[2024-06-08 07:14] LABS: Creatinine Clr Calc Pharmacy 138.7; Estimated Glomerular Filt Rate > 60
[2024-06-08] MEDS: Albuterol/Iprat 2.5/0.5MG 3 ML AMPUL.NEB INHALE ×2 (08:39→19:25)
[2024-06-08] MEDS: Fluticasone/Vilanterol 200/25 BLST.W.DEV 1 PUFF INHALE (08:39)
[2024-06-08] MEDS: cefEPime HCl 2 GM in 0.9 % Sodium Chloride 50 ML IV ×3 (09:04→23:32)
[2024-06-08] MEDS: Linezolid/D5W 600 MG/300 ML PIGGYBACK 300 MG IV ×2 (09:06→19:30)
[2024-06-08] MEDS: Cholecalciferol (Vitamin D3) 25 MCG TABLET 125 MCG PO (09:06)
[2024-06-08] MEDS: traMADoL HCL 50 MG TABLET PO ×2 (09:06→23:09)
[2024-06-08] MEDS: Atorvastatin Calcium 20 MG TABLET PO (09:07)
[2024-06-08] MEDS: Clotrimazole 1 % Cream 15 GM TUBE 1 APPL TOPICAL ×2 (09:07→21:00)
[2024-06-08] MEDS: Hydrocortisone 10 MG TABLET 20 MG PO (09:07)
[2024-06-08] MEDS: Apixaban 5 MG TABLET PO ×2 (09:07→20:59)
[2024-06-08] MEDS: Escitalopram Oxalate 20 MG TABLET PO (09:07)
[2024-06-08] MEDS: Multivitamin TABLET 1 TAB PO (09:07)
[2024-06-08] MEDS: Calcium Carbonate 750 MG TAB.CHEW PO (09:07)
[2024-06-08] MEDS: Gabapentin 100 MG CAPSULE PO ×2 (09:07→20:59)
[2024-06-08] MEDS: Ferrous Sulfate 324 MG TABLET.DR PO (09:07)
[2024-06-08] MEDS: Metoprolol Succinate ER 50 MG TAB.ER.24H PO (09:07)
[2024-06-08] MEDS: Magnesium Oxide 400 MG TABLET PO (09:07)
[2024-06-08] MEDS: Dicyclomine HCl 10 MG CAPSULE PO ×2 (09:07→20:59)
[2024-06-08] MEDS: Fluticasone Propionate Nasal 16 GM SPRAY 1 SPRAY NOSTRIL-B (09:08)
--- NOTE | 2024-06-08 10:20 | MHC.CM.PN ---
Per MD rounds patient not medically cleared for dc - plan for tomorrow. Transport booked through [employer] for 06/09/24 @ 12pm via [facility] to [facility]. Per UZAIR Wiggins, they will provide med nec no paperwork required from [facility]. Patient agreeable to plan. IMM delivered. If patient does not dc 06/09 transport can be cancelled by calling UZAIR windows application administrator nurse @ [phone]. DC summary will need to be faxed to UZAIR Wiggins @ [phone].
[2024-06-08] MEDS: Acetaminophen 325 MG TABLET 975 MG PO (11:30)
[2024-06-08] MEDS: Butalb/Acetamin/Caff 50/325/40 TABLET 1 TAB PO (14:23)
--- NOTE | 2024-06-08 15:40 | P.PNIM_ITS ---
Subjective Subjective Date of Service: 06/08/24 Interval History: redness improved no fever Review of Systems Review of Systems: Yes all other systems are reviewed and are negative Physical Exam 2 Vital Signs: Vital Signs: Last Vital Signs Temp 97.8 F 06/08/24 15:36 Pulse 88 06/08/24 15:36 Resp 18 06/08/24 15:36 BP 116/67 06/08/24 15:36 Pulse Ox 96 06/08/24 15:36 O2 Del Method Room Air 06/08/24 15:36 BMI result Body Mass Index 66.6 Gen: in no acute distress HEENT: sclera anicteric, moist mucus membranes Neck: supple Lungs: clear to auscultation bilaterally Heart: regular rate and rhythm, no murmurs Abd: soft, non-tender, non-distended, obese Ext: 2+ bilateral leg edema with venous stasis changes Skin: improving erythema LLE from hip to foot without any abscess or drainage, scaly maculopapular rash on back. Worst erythema is on side of thigh Neuro: alert and oriented x3, no focal findings Psych: appropriate affect Objective Data Active Medications Acetaminophen (Acetaminophen 325 Mg Tablet) 975 mg PO Q6H PRN PRN Reason: Pain, Mild 1-3,fever,headache Last Admin: 06/08/24 11:30 Dose: 975 mg Documented By: LILIA Albuterol/Ipratropium (Albuterol/Iprat 2.5/0.5mg 3 Ml Ampul.Neb) 3 ml INHALE BID [facility] Last Admin: 06/08/24 08:39 Dose: 3 ml Documented By: GINA Apixaban (Apixaban 5 Mg Tablet) 5 mg PO BID [facility] Last Admin: 06/08/24 09:07 Dose: 5 mg Documented By: LILIA Atorvastatin Calcium (Atorvastatin Calcium 20 Mg Tablet) 20 mg PO DAILY [facility] Last Admin: 06/08/24 09:07 Dose: 20 mg Documented By: LILIA Bisacodyl (Bisacodyl 10 Mg Supp.Rect) 10 mg [place] DAILY PRN PRN Reason: constipation if no BM for 8 hours after MOM Calcium Carbonate (Calcium Carbonate 750 Mg Tab.Chew) 750 mg PO Q4H PRN PRN Reason: Heartburn Calcium Carbonate (Calcium Carbonate 750 Mg Tab.Chew) 750 mg PO DAILY [facility] Last Admin: 06/08/24 09:07 Dose: 750 mg Documented By: LILIA Clotrimazole (Clotrimazole 1 % Cream 15 Gm Tube) 1 appl TOPICAL BID [facility]; Protocol Last Admin: 06/08/24 09:07 Dose: 1 appl Documented By: LILIA Dicyclomine HCl (Dicyclomine Hcl 10 Mg Capsule) 10 mg PO BID [facility] Last Admin: 06/08/24 09:07 Dose: 10 mg Documented By: LILIA Escitalopram Oxalate (Escitalopram Oxalate 20 Mg Tablet) 20 mg PO DAILY [facility] Last Admin: 06/08/24 09:07 Dose: 20 mg Documented By: LILIA Ferrous Sulfate (Ferrous Sulfate 324 Mg Tablet.Dr) 324 mg PO DAILY [facility] Last Admin: 06/08/24 09:07 Dose: 324 mg Documented By: LILIA Fluticasone Propionate (Fluticasone Propionate Nasal 16 Gm [place]) 1 spray NOSTRIL-B DAILY [facility] Last Admin: 06/08/24 09:08 Dose: 1 spray Documented By: LILIA Fluticasone/Vilanterol (Fluticasone/Vilanterol 200/25 Blst.W.Dev) 1 puff INHALE RDAILY [facility] Last Admin: 06/08/24 08:39 Dose: 1 puff Documented By: GINA Furosemide (Furosemide 40 Mg Tablet) 40 mg PO Q48H [facility]; Protocol Last Admin: 06/07/24 10:07 Dose: 40 mg Documented By: LILIA Gabapentin (Gabapentin 100 Mg Capsule) 100 mg PO BID [facility] Last Admin: 06/08/24 09:07 Dose: 100 mg Documented By: LILIA Hydrocortisone (Hydrocortisone 10 Mg Tablet) 20 mg PO DAILY@0900 [facility] Last Admin: 06/08/24 09:07 Dose: 20 mg Documented By: LILIA Hydrocortisone (Hydrocortisone 10 Mg Tablet) 10 mg PO DAILY@1700 [facility] Last Admin: 06/07/24 16:38 Dose: 10 mg Documented By: LILIA Cefepime HCl 2 gm/ Sodium (Chloride) 50 mls @ 100 mls/hr IV Q8H [facility] Last Infusion: 06/08/24 09:36 Dose: Infused Documented By: LILIA Linezolid (Zyvox/D5w) 600 mg in 300 mls @ 300 mls/hr IV Q12H [facility] Last Infusion: 06/08/24 10:14 Dose: Infused Documented By: LILIA Lorazepam (Lorazepam 0.5 Mg Tablet) 0.5 mg PO Q12H PRN PRN Reason: Anxiety Magnesium Hydroxide (Milk Of Magnesia 30 Ml Oral.Susp) 30 ml PO DAILY PRN PRN Reason: Constipation Last Admin: 06/04/24 21:51 Dose: 30 ml Documented By: MARICHUYRISYoselin Magnesium Oxide (Magnesium Oxide 400 Mg Tablet) 400 mg PO DAILY [facility] Last Admin: 06/08/24 09:07 Dose: 400 mg Documented By: LILIA Melatonin (Melatonin 3 Mg Tablet) 9 mg PO BEDTIME [facility] Last Admin: 06/07/24 20:21 Dose: 9 mg Documented By: SAMUEL Metoprolol Succinate (Metoprolol Succinate Er 50 Mg Tab.Er.24h) 50 mg PO DAILY [facility]; Protocol Last Admin: 06/08/24 09:07 Dose: 50 mg Documented By: LILIA Multivitamins/Vitamin C (Multivitamin Tablet) 1 tab PO DAILY [facility] Last Admin: 06/08/24 09:07 Dose: 1 tab Documented By: LILIA Nitroglycerin (Nitroglycerin 0.4 Mg Tab.Subl) 0.4 mg SUBLINGUAL Q5M PRN PRN Reason: Chest Pain Omeprazole (Omeprazole 20 Mg Capsule.Dr) 20 mg PO DAILY@0630 [facility] Last Admin: 06/08/24 05:38 Dose: 20 mg Documented By: SAMUEL Ondansetron HCl (Ondansetron Hcl 4 Mg/2 Ml Vial) 4 mg IVPUSH Q8H PRN PRN Reason: Nausea and Vomiting Sodium Chloride (0.9 % Sodium Chloride Flush 3 Ml Syringe) 3 ml IVFLUSH QSHIFT [facility] Last Admin: 06/08/24 13:33 Dose: Not Given Documented By: LILIA Non-Admin Reason: Previously Administered Sodium Chloride (Sodium Chloride 0.65 % Nasal 44 Ml Sprbtl) 2 spray NOSTRIL-B Q6H PRN PRN Reason: Nasal Congestion Tamsulosin HCl (Tamsulosin Hcl 0.4 Mg Capsule) 0.8 mg PO BEDTIME [facility] Last Admin: 06/07/24 20:21 Dose: 0.8 mg Documented By: SAMUEL Tramadol HCl (Tramadol Hcl 50 Mg Tablet) 50 mg PO Q12H PRN PRN Reason: pain related to left lower cellulitis Last Admin: 06/08/24 09:06 Dose: 50 mg Documented By: LILIA Vitamin D (Cholecalciferol (Vitamin D3) 25 Mcg Tablet) 125 mcg PO DAILY [facility] Last Admin: 06/08/24 09:06 Dose: 125 mcg Documented By: LILIA Labs 06/06/24 05:24 06/08/24 05:34 Labs: Laboratory Results - last 24 hr 06/08/24 05:34 Hold Purple Top SEE NOTE Estim Creat Clear Calc 138.7 Estimated GFR > 60 Assessment and Plan (1) Cellulitis of left leg: Status: Acute Plan d6 for 69yo M with morbid obesity, AF on apixaban, OHS, Charcot foot LLE, TRACY on CPAP, solitary kidney, ?DM2 with recent admission to [facility] for LLE cellulitis after which he was discharged to Rehab; sent in with recurrent cellulitis that did respond to 2 rounds of cephalexin LLE cellulitis - US negative for DVT, 06/03-06/06 pip-dalila, 06/03 vanco, 06/04-06/06 daptomycin; per ID changed to cefepime and linezolid 06/06-, CRP improved - upon d/c linezolid PO for total 7-10d per ID rash - biopsy records from [facility] 05/29/24: hyperkeratosis, parakeratosis, inflamed scale crust and a superficial perivascular mixed inflammatory infiltrate with neutrophil exocystosis. No fungus, no lymphoid atypica, no dermatomyositis. Ddx: resolving impetigo, drug eruption, irritant dermatitis. adrenal insufficiency - discussed with doctor from [facility], Dr Ferrer, as well as his PCP Dr Renee. Changed from prednisone 30 mg/d back to prior regimen of hydrocortisone 20 mg qam + 10 mg qpm intertrigo - clotrimazole cream BID under pannus and in skin folds pAF - continue apixaban, metoprolol succinate HLD - statin venous stasis - changed from IV back to PO furosemide OHS TRACY - CPAP at night mood disorder - escitalopram ?DM2 - A1c only 5.3, d/c'ed insulin + fingersticks VTE ppx - apixaban dispo - if continues to improve, return to [facility] tomorrow In my clinical judgment, the patient requires continued inpatient hospitalization for the following reasons: IV ABX Total time managing care of this patient today: 40 minutes. Quality Stroke Does the patient have a stroke diagnosis?: No VTE Prior VTE?: No VTE Risk Level:: Medical - moderate - high VTE Device Contraindication: Treatment Not Indicated VTE Drug Contraindication: N/A - Med Ordered
[2024-06-08] MEDS: Hydrocortisone 10 MG TABLET PO (16:12)
--- NOTE | 2024-06-08 16:29 | PM.DS ---
DS: Providers Provider Date of Service: 06/08/24 Date of admission: 06/03/24 21:07 Date of discharge: 06/08/24 Primary care physician: Glenroy Renee CNP Consults: 06/04/24 11:20 Consult to Wound Care Routine Reason for consultation: cellulitis to left lower abdomen/left outter thigh, rash to left upper back Has provider been notified: Yes 06/04/24 14:43 Consult to Infectious Diseases Routine Consulting Provider: [facility] Reason for consultation: recurrent cellulitis 06/06/24 01:30 Consult to Wound Care Routine Reason for consultation: left lower leg & lower abd redness/Cellulitis 06/07/24 01:10 Consult to Wound Care Routine Reason for consultation: cellulitis to LLE & LLQ abd DS: Diagnosis Discharge Diagnosis (1) Cellulitis of left leg: Status: Acute (2) Rash: Status: Acute (3) Morbid obesity with BMI of 60.0-69.9, adult: Status: Acute DS: Summary Hospital Course Hospital Course: From the history and physical by the admitting hospitalist, ZEINAB Dela Cruz, 06/03/24: Patient is a annual male with a past medical history significant for morbid obesity, AFib on Eliquis, obesity hypoventilation syndrome, Charcot's foot left lower extremity secondary to CKD, TRACY on CPAP, ?T2DM, with recent admission at [facility] for left lower extremity cellulitis, discharged to [place] [facility] 1 week ago. The patient reports that his cellulitis improved when he was discharged and he went to rehab on p.o. antibiotics with complete resolution of the cellulitis. He returns today with worsening cellulitis for the past 2 days. Previously it was from the knee down now it is all the way up to the hip. Very erythematous without any purulent drainage, or warmth. Does report some fever and chills starting 2 days ago as well as an intermittent headache. Denies nausea, vomiting, abdominal pain, diarrhea, urinary symptoms including frequency, urgency or hematuria. He is bed-bound and does have urinary incontinence. He reports multiple skin rashes that he is being treated for with creams and powders. 69yo M with morbid obesity, AF on apixaban, OHS, Charcot foot LLE, TRACY on CPAP, solitary kidney, and ?DM2 with recent admission to [facility] for LLE cellulitis after which he was discharged to [facility]; sent in with recurrent cellulitis that did respond to 2 rounds of cephalexin. He was admitted to the medical-surgical unit. Hospital course by problem: LLE cellulitis - US negative for DVT, 06/03-06/06 pip-dalila, 06/03 vanco, 06/04-06/06 daptomycin; per ID changed to cefepime and linezolid 06/06-. CRP improved and rashed improved. Upon discharge, given linezolid PO for total 10d per ID consultation. rash - Biopsy records from [facility] 05/29/24 reviewed: hyperkeratosis, parakeratosis, inflamed scale crust and a superficial perivascular mixed inflammatory infiltrate with neutrophil exocystosis. No fungus, no lymphoid atypica, no dermatomyositis. Ddx: resolving impetigo, drug eruption, irritant dermatitis. To continue steroid cream. adrenal insufficiency - Discussed with doctor from [facility] [employer] [facility], Dr Ferrer, as well as his PCP Dr Renee. Changed from prednisone 30 mg/d back to prior regimen of hydrocortisone 20 mg qam + 10 mg qpm He was discharged back to Rehab for short-term rehabilitaiton. Time Attestation Discharge Coordination Time (in mins): 45 Quality: Stroke Does the patient have a stroke diagnosis?: No DS: Data Data Completed and Pending Labs on day of discharge: Laboratory Results - last 24 hr 06/08/24 05:34 Hold Purple Top SEE NOTE Creatinine 0.83 Estim Creat Clear Calc 138.7 Estimated GFR > 60 Preliminary micro results at discharge 06/03/24 19:13 Blood Culture - Preliminary Blood - Venous No growth after 48 hours. 06/03/24 18:58 Blood Culture - Preliminary Blood - Venous No growth after 48 hours. Discharge Plan Discharge Referrals: Glenroy Renee, LALITA [Primary Care Provider] - 1 Week Discharge Medications: No Action furosemide 40 mg Tablet 40 mg PO Q48H acetaminophen 325 mg Tablet 650 mg PO Q6H PRN (Reason: Pain or fever) salicylic acid 6 % Gel 1 appl TOPICAL BID Rx Instructions: apply to both feet ipratropium-albuterol [DuoNeb] 0.5 mg-3 mg(2.5 mg base)/3 mL Solution For Nebulization 3 ml INHALATION BID metoprolol succinate 50 mg Tablet Extended Release 24 Hr 50 mg PO DAILY clotrimazole-betamethasone 1-0.05 % Lotion 1 appl TOPICAL BID Rx Instructions: apply to affected area(s) methylprednisolone [Methylprednisone] 4 mg Tablet 20 mg PO DAILY tramadol 50 mg Tablet 50 mg PO Q12H PRN (Reason: pain related to left lower cellulitis) methylprednisolone 2 mg Tablet 10 mg PO DAILY calcium carbonate 600 mg calcium (1,500 mg) Tablet 600 mg PO DAILY lorazepam [Ativan] 0.5 mg Tablet 0.5 mg PO Q12H PRN (Reason: Anxiety) tamsulosin 0.4 mg Capsule 0.8 mg PO BEDTIME bisacodyl 10 mg Suppository 10 mg [place] DAILY PRN (Reason: constipation if no BM for 8 hours after MOM) cephalexin 500 mg Capsule 500 mg PO QID Rx Instructions: start date 06/02/24, end date 06/09/24 pantoprazole 40 mg Tablet,Delayed Release (Dr/Ec) 40 mg PO DAILY@0630 ferrous sulfate 325 mg (65 mg iron) Tablet 325 mg PO DAILY nitroglycerin [Nitrostat] 0.4 mg Tablet, Sublingual 0.4 mg SUBLINGUAL Q5M PRN (Reason: Chest Pain) Rx Instructions: do not exceed 3 doses per episode gabapentin 100 mg Capsule 100 mg PO BID insulin lispro [Humalog U-100 Insulin] 100 unit/mL Solution 1 sliding scale dose SUBCUT USEASDIRECTD Protocol: Insulin Correction Scale Less than or equal to 110 ---- Give (units): 0 111 to 150 Give (units): 0 151 to 200 Give (units): 2 201 to 250 Give (units): 4 251 to 300 Give (units): 6 301 to 350 Give (units): 8 Greater than 350 Give (units): 10 Call MD if Blood Glucose > : 350 Rx Instructions: 150-199 = 2 units; 200-249 = 4 units; 250-299 = 6 units; 300-349 = 8 units; 350-399 = 10 units; >400 = 10 units and call MD fluticasone propionate [Flonase] 50 mcg/actuation [place],Suspension 1 spray INTRANASAL DAILY Rx Instructions: administer into each nostril dicyclomine 10 mg Capsule 10 mg PO BID mineral oil Oil 3 appl TOPICAL Q48H Rx Instructions: both ears every day shift every other day escitalopram oxalate 20 mg Tablet 20 mg PO DAILY Saline Nasal Mist 0.65 % Aerosol,[place] 2 spray INTRANASAL Q6H PRN (Reason: Nasal Congestion) rosuvastatin 5 mg Tablet 5 mg PO DAILY cholecalciferol (vitamin D3) [Vitamin D3] 125 mcg (5,000 unit) Tablet 125 mcg PO DAILY Dulera 200-5 mcg/actuation Hfa Aerosol Inhaler 2 puff INHALATION BID Rx Instructions: rinse mouth after use dorzolamide-timolol (PF) [Cosopt (PF)] 2-0.5 % [place] 1 drp OPHTHALMIC (EYE) DAILY melatonin 10 mg Tablet 10 mg PO BEDTIME Eliquis 5 mg Tablet 5 mg PO BID magnesium oxide 400 mg magnesium Tablet 400 mg PO DAILY Print Language: Faroese
[2024-06-08] MEDS: 0.9 % Sodium Chloride Flush 3 ML SYRINGE IVFLUSH (20:59)
[2024-06-08] MEDS: Tamsulosin HCL 0.4 MG CAPSULE 0.8 MG PO (20:59)
[2024-06-08] MEDS: Melatonin 3 MG TABLET 9 MG PO (20:59)
[2024-06-09 01:02] VITALS: PULSE 82; RESP 20; O2SAT 97
[2024-06-09 04:00] VITALS: BP 117/73; PULSE 76; RESP 20; TEMP 36.1; O2SAT 98
[2024-06-09] MEDS: Omeprazole 20 MG CAPSULE.DR PO (05:47)
[2024-06-09 06:30] LABS: Creatinine Clr Calc Pharmacy 157.7; Estimated Glomerular Filt Rate > 60
[2024-06-09 07:33] VITALS: BP 122/60; PULSE 78; RESP 18; TEMP 36.3; O2SAT 97
[2024-06-09] MEDS: Fluticasone/Vilanterol 200/25 BLST.W.DEV 1 PUFF INHALE (08:05)
[2024-06-09] MEDS: Albuterol/Iprat 2.5/0.5MG 3 ML AMPUL.NEB INHALE (08:05)
[2024-06-09 08:06] VITALS: PULSE 78; RESP 18; O2SAT 96
[2024-06-09] MEDS: Magnesium Oxide 400 MG TABLET PO (08:27)
[2024-06-09] MEDS: Linezolid/D5W 600 MG/300 ML PIGGYBACK 300 MG IV (08:27)
[2024-06-09] MEDS: Calcium Carbonate 750 MG TAB.CHEW PO (08:27)
[2024-06-09] MEDS: Metoprolol Succinate ER 50 MG TAB.ER.24H PO (08:28)
[2024-06-09] MEDS: Ferrous Sulfate 324 MG TABLET.DR PO (08:28)
[2024-06-09] MEDS: Gabapentin 100 MG CAPSULE PO (08:28)
[2024-06-09] MEDS: Dicyclomine HCl 10 MG CAPSULE PO (08:28)
[2024-06-09] MEDS: Multivitamin TABLET 1 TAB PO (08:28)
[2024-06-09] MEDS: Escitalopram Oxalate 20 MG TABLET PO (08:28)
[2024-06-09] MEDS: Hydrocortisone 10 MG TABLET 20 MG PO (08:28)
[2024-06-09] MEDS: Atorvastatin Calcium 20 MG TABLET PO (08:28)
[2024-06-09] MEDS: Cholecalciferol (Vitamin D3) 25 MCG TABLET 125 MCG PO (08:28)
[2024-06-09] MEDS: Furosemide 40 MG TABLET PO (08:28)
[2024-06-09] MEDS: Apixaban 5 MG TABLET PO (08:28)
[2024-06-09] MEDS: 0.9 % Sodium Chloride Flush 3 ML SYRINGE IVFLUSH (08:29)
[2024-06-09] MEDS: Acetaminophen 325 MG TABLET 975 MG PO (09:43)
[2024-06-09] MEDS: Clotrimazole 1 % Cream 15 GM TUBE 1 APPL TOPICAL (09:44)
[2024-06-09] MEDS: Fluticasone Propionate Nasal 16 GM SPRAY 1 SPRAY NOSTRIL-B (09:44)
[2024-06-09] MEDS: cefEPime HCl/D5W 2 GM/50 ML PIGGYBACK IV (10:11)
--- NOTE | 2024-06-09 11:41 | P.DS_ITS ---
DS: Providers Provider Date of Service: 06/09/24 Date of admission: 06/03/24 21:07 Date of discharge: 06/09/24 Primary care physician: Glenroy Renee CNP Consults: 06/04/24 11:20 Consult to Wound Care Routine Reason for consultation: cellulitis to left lower abdomen/left outter thigh, rash to left upper back Has provider been notified: Yes 06/04/24 14:43 Consult to Infectious Diseases Routine Consulting Provider: [facility] [place] [place] [facility] Reason for consultation: recurrent cellulitis 06/06/24 01:30 Consult to Wound Care Routine Reason for consultation: left lower leg & lower abd redness/Cellulitis 06/07/24 01:10 Consult to Wound Care Routine Reason for consultation: cellulitis to LLE & LLQ abd DS: Diagnosis Discharge Diagnosis (1) Cellulitis of left leg: Status: Acute (2) Rash: Status: Acute (3) Morbid obesity with BMI of 60.0-69.9, adult: Status: Acute DS: Summary Hospital Course Hospital Course: From the history and physical by the admitting hospitalist, ZEINAB Dela Cruz, 06/03/24: Patient is a annual male with a past medical history significant for morbid obesity, AFib on Eliquis, obesity hypoventilation syndrome, Charcot's foot left lower extremity secondary to CKD, TRACY on CPAP, ?T2DM, with recent admission at [facility] for left lower extremity cellulitis, discharged to [facility] 1 week ago. The patient reports that his cellulitis improved when he was discharged and he went to rehab on p.o. antibiotics with complete resolution of the cellulitis. He returns today with worsening cellulitis for the past 2 days. Previously it was from the knee down now it is all the way up to the hip. Very erythematous without any purulent drainage, or warmth. Does report some fever and chills starting 2 days ago as well as an intermittent headache. Denies nausea, vomiting, abdominal pain, diarrhea, urinary symptoms including frequency, urgency or hematuria. He is bed-bound and does have urinary incontinence. He reports multiple skin rashes that he is being treated for with creams and powders. 69yo M with morbid obesity, AF on apixaban, OHS, Charcot foot LLE, TRACY on CPAP, solitary kidney, and ?DM2 with recent admission to [facility] for LLE cellulitis after which he was discharged to [facility]; sent in with recurrent cellulitis that did respond to 2 rounds of cephalexin. He was admitted to the medical-surgical unit. Hospital course by problem: LLE cellulitis - US negative for DVT, 06/03-06/06 pip-dalila, 06/03 vanco, 06/04-06/06 daptomycin; per ID changed to cefepime and linezolid 06/06-. CRP improved and rashed improved. Upon discharge, given linezolid PO for total 10d per ID consultation. rash - Biopsy records from [facility] 05/29/24 reviewed: hyperkeratosis, parakeratosis, inflamed scale crust and a superficial perivascular mixed inflammatory infiltrate with neutrophil exocystosis. No fungus, no lymphoid atypica, no dermatomyositis. Ddx: resolving impetigo, drug eruption, irritant dermatitis. To continue steroid cream. adrenal insufficiency - Discussed with doctor from [facility], Dr Ferrer, as well as his PCP Dr Renee. Changed from prednisone 30 mg/d back to prior regimen of hydrocortisone 20 mg qam + 10 mg qpm He was discharged back to Rehab for short-term rehabilitaiton. Time Attestation Discharge Coordination Time (in mins): 35 Quality: Safe Use of Opioids Does Pt have an Active Cancer Diagnosis on the Problem List?: No Quality: Stroke Does the patient have a stroke diagnosis?: No Physical Exam Vital Signs: Vital Signs: Last Vital Signs Temp 97.4 F 06/09/24 07:33 Pulse 78 06/09/24 08:06 Resp 18 06/09/24 08:06 BP 122/60 06/09/24 07:33 Pulse Ox 97 06/09/24 07:33 O2 Del Method Room Air 06/09/24 07:33 BMI result Body Mass Index 66.6 Const: Other: Awake alert no acute distress Resp: Other: Clear to auscultation bilaterally no rales rhonchi or wheezes Cardio: Other: No S4; positive S1-S2; no S3 murmurs rubs or gallops GI: Other: Obese positive bowel sounds Skin: Other: Mild erythema proximal thigh and lower abdomen as compared to admission Extrem: Other: Positive edema no erythema DS: Data Data Completed and Pending Labs on day of discharge: Laboratory Results - last 24 hr 06/09/24 05:48 Hold Purple Top SEE NOTE Creatinine 0.73 Estim Creat Clear Calc 157.7 Estimated GFR > 60 Discharge Plan Discharge Anticipated Discharge Date/Time: 06/09/24 11:40 Patient Disposition: Xfer [facility] Discharge Diagnosis: cellulitis, rash, adrenal insufficiency Referrals: Glenroy Renee CNP [Primary Care Provider] - 1 Week Discharge Medications: New hydrocortisone [Cortef] 10 mg Tablet 20 mg PO DAILY@0900 Qty: 30 0RF hydrocortisone [Cortef] 10 mg Tablet 10 mg PO DAILY@1700 Qty: 30 0RF linezolid [Zyvox] 600 mg tablet 600 mg PO BID Qty: 20 0RF Continued furosemide 40 mg Tablet 40 mg PO Q48H acetaminophen 325 mg Tablet 650 mg PO Q6H PRN (Reason: Pain or fever) salicylic acid 6 % Gel 1 appl TOPICAL BID Rx Instructions: apply to both feet ipratropium-albuterol 0.5 mg-3 mg(2.5 mg base)/3 mL Solution For Nebulization 3 ml INHALATION BID metoprolol succinate 50 mg Tablet Extended Release 24 Hr 50 mg PO DAILY clotrimazole-betamethasone 1-0.05 % Lotion 1 appl TOPICAL BID Rx Instructions: apply to affected area(s) tramadol 50 mg Tablet 50 mg PO Q12H PRN (Reason: pain related to left lower cellulitis) calcium carbonate 600 mg calcium (1,500 mg) Tablet 600 mg PO DAILY lorazepam [Ativan] 0.5 mg Tablet 0.5 mg PO Q12H PRN (Reason: Anxiety) tamsulosin 0.4 mg Capsule 0.8 mg PO BEDTIME bisacodyl 10 mg Suppository 10 mg [place] DAILY PRN (Reason: constipation if no BM for 8 hours after MOM) pantoprazole 40 mg Tablet,Delayed Release (Dr/Ec) 40 mg PO DAILY@0630 ferrous sulfate 325 mg (65 mg iron) Tablet 325 mg PO DAILY nitroglycerin [Nitrostat] 0.4 mg Tablet, Sublingual 0.4 mg SUBLINGUAL Q5M PRN (Reason: Chest Pain) Rx Instructions: do not exceed 3 doses per episode gabapentin 100 mg Capsule 100 mg PO BID insulin lispro [Humalog U-100 Insulin] 100 unit/mL Solution 1 sliding scale dose SUBCUT USEASDIRECTD Protocol: Insulin Correction Scale Less than or equal to 110 ---- Give (units): 0 111 to 150 Give (units): 0 151 to 200 Give (units): 2 201 to 250 Give (units): 4 251 to 300 Give (units): 6 301 to 350 Give (units): 8 Greater than 350 Give (units): 10 Call if Blood Glucose > : 350 Rx Instructions: 150-199 = 2 units; 200-249 = 4 units; 250-299 = 6 units; 300-349 = 8 units; 350-399 = 10 units; >400 = 10 units and call fluticasone propionate 50 mcg/actuation [place],Suspension 1 spray INTRANASAL DAILY Rx Instructions: administer into each nostril dicyclomine 10 mg Capsule 10 mg PO BID mineral oil Oil 3 appl TOPICAL Q48H Rx Instructions: both ears every day shift every other day escitalopram oxalate 20 mg Tablet 20 mg PO DAILY Saline Nasal Mist 0.65 % Aerosol,[place] 2 spray INTRANASAL Q6H PRN (Reason: Nasal Congestion) rosuvastatin 5 mg Tablet 5 mg PO DAILY cholecalciferol (vitamin D3) [Vitamin D3] 125 mcg (5,000 unit) Tablet 125 mcg PO DAILY Dulera 200-5 mcg/actuation Hfa Aerosol Inhaler 2 puff INHALATION BID Rx Instructions: rinse mouth after use dorzolamide-timolol (PF) [Cosopt (PF)] 2-0.5 % Dropperette 1 drp OPHTHALMIC (EYE) DAILY melatonin 10 mg Tablet 10 mg PO BEDTIME Eliquis 5 mg Tablet 5 mg PO BID magnesium oxide 400 mg magnesium Tablet 400 mg PO DAILY Discontinued methylprednisolone [Methylprednisone] 4 mg Tablet 20 mg PO DAILY methylprednisolone 2 mg Tablet 10 mg PO DAILY cephalexin 500 mg Capsule 500 mg PO QID Rx Instructions: start date 06/02/24, end date 06/09/24 Discharge Orders: Discharge Order (Routine); Ordered 06/09/24 Ordered By: Jonathan Crane Diet: Low salt diet Activity on Discharge: As tolerated Stand Alone Forms: Patient Portal Discharge page Print Language: [place] Care Plan Goals: cure of infection Health Concerns: cellulitis, rash, adrenal insufficiency Plan of Treatment: continue steroid/antifungal cream take hydrocortisone 20 mg every morning plus 10 mg every evening Assessment: See Discharge Summary.
[2024-06-09 11:49] VITALS: BP 114/66; PULSE 86; RESP 18; TEMP 36.4; O2SAT 98
--- NOTE | 2024-06-09 12:09 | MHC.CM.PN ---
PT CLEARED TO DC TODAY, BRANDY UZAIR HAS ALREADY AUTHORIZED HIS RETURN TO [facility] AND ARRANGED FOR TRANSPORT WITH MELVI ROMAN
== END 2024-06-09 12:38 | disposition skilled nursing facility (03) | DRG 603 ==
LOC: HO.ED 19:08 → HO.EDOVER 21:12 → HO.S3 06-04 09:42
PROVIDERS: Family Medicine; Physician Assistant; Admitting Provider Physician Assistant; Emergency Provider Emergency Medicine Emergency Medical Services; PCP Nurse Practitioner; Visit Provider Hospitalist
DX: L03.116 Cellulitis of left lower limb (principal); E66.2 Morbid (severe) obesity with alveolar hypoventilation; Z68.44 Body mass index [BMI] 60.0-69.9, adult; Q60.0 Renal agenesis, unilateral; E27.40 Unspecified adrenocortical insufficiency; I87.8 Other specified disorders of veins; L30.4 Erythema intertrigo; F39 Unspecified mood [affective] disorder; I48.0 Paroxysmal atrial fibrillation; E78.5 Hyperlipidemia, unspecified; Z79.01 Long term (current) use of anticoagulants; Z79.899 Other long term (current) drug therapy
CPT/HCPCS: 36415; 80048; 80053; 82550; 82565; 82947; 83036; 83605; 83690; 83735; 85025; 85610; 85730; 86140; 87040; 93971; 94640; 94660; 97162; 99285; J0692; J0696; J0878; J1940; J2020; J2543; J3370

== ENCOUNTER → 2024-06-03 21:07 | Outpatient (BNV) | payer OTHER, SELFPAY | PROVIDERS: Admitting Provider Physician Assistant; Emergency Provider Emergency Medicine Emergency Medical Services; PCP Nurse Practitioner; Visit Provider Physician Assistant | DX: L03.116 Cellulitis of left lower limb (principal) | CPT/HCPCS: 99232 ==

== ENCOUNTER → 2024-06-03 21:07 | Outpatient (BNV) | payer OTHER, SELFPAY | PROVIDERS: Admitting Provider Physician Assistant; Emergency Provider Emergency Medicine Emergency Medical Services; PCP Nurse Practitioner; Visit Provider Internal Medicine | DX: L30.4 Erythema intertrigo (principal); L03.116 Cellulitis of left lower limb | CPT/HCPCS: 99222 ==